=== PATIENT | male | born 1950 | race Caucasian/White ===

== ENCOUNTER 2016-09-08 12:23 | Emergency (ER) | payer BC ==
[2016-09-08] MEDS ORDERED: NS 0.9% 1000 ML* 3,000 ML IV ONE (12:54)
[2016-09-08] MEDS ORDERED: Metoclopramide IV* 5 MG/ML 2 ML VIAL IV ONE (12:54)
[2016-09-08] MEDS ORDERED: HYDROmorphone INJ* 2 MG/ML CARPUJECT SYRINGE IV ONE (12:54)
[2016-09-08] MEDS ORDERED: LORazepam INJ* 2 MG/ML 1 ML VIAL IV PUSH ONE (12:56)
[2016-09-08] MEDS ORDERED: HYDROmorphone INJ* 2 MG/ML CARPUJECT SYRINGE IV SLOW PU ONE (12:57)
[2016-09-08 13:28] LABS: Hematocrit 48 % (42-52); Hemoglobin 15.9 g/dl (14.0-18.0); Mean Corpuscular HGB Conc 33 g/dl (31-36); Mean Corpuscular Hemoglobin 31 pg (27-31); Mean Corpuscular Volume 95 fL (80-94); Mean Platelet Volume 10 um3 (7.4-10.4); Red Blood Count 5.07 10^6/ul (4.0-5.4); Red Cell Distribution Width 14 % (10.5-15); White Blood Count 10.3 10^3/ul (3.5-10.8)
[2016-09-08 13:45] LABS: Albumin 4.6 g/dL (3.2-5.2); BUN/Creatinine Ratio 26.2 (8-20); C Reactive Protein 2.17 mg/L (< 5.00); Calcium 10.4 mg/dL (8.6-10.3); EGFR African American 65.1 (>60); EGFR Non-African American 50.6 (>60); Globulin 3.5 g/dL (2-4); Magnesium 2.4 mg/dL (1.9-2.7); Total Bilirubin 0.8 mg/dL (0.2-1.0); Total Protein 8.1 g/dL (6.4-8.9)
[2016-09-08 14:05] LABS: Potassium 4.4 mmol/L (3.5-5.0)
--- NOTE | 2016-09-08 14:37 | ED ---
Robbie Wood Adam, scribed for Vini Frazier MD on 09/08/16 at 1319 . Abdominal Pain/Male - HPI Summary HPI Summary: Patient is a 65 y/o male who presents to [facility] with abdominal pain that set on suddenly 6 days ago. He describes the pain as constant, but alleviated with Dilaudid (4mg) with Lorazepam and with meditation tape. Pt has been experiencing these episodes since [address] Loomis (GI) suspects Cyclical Vomiting Syndrome. He states the pain begins suddenly with no trigger and describes it as a knot in his abd that pulses up and down. His is concerned about dehydration and states he has not retained food since 6 days ago. His blood pressure has been fluctuating. He reports it was 94/44 earlier today and is 176/79 currently. He confirms dry heaves and chills, but denies migraines. He has not had any surgeries on his stomach and has NKDA. He does have HTN. - History of Current Complaint Chief Complaint: EDAbdPain Stated Complaint: ABD PAIN Time Seen by Provider: 09/08/16 12:39 Hx Obtained From: Patient, Family/Ticket Puller - Onset/Duration: Sudden Onset, Lasting Days, Still Present Timing: Constant, Lasting Days Severity Initially: Moderate Severity Currently: Moderate Pain Intensity: 10 Pain Scale Used: 0-10 Numeric Aggravating Factor(s): Nothing Alleviating Factor(s): Medications - Dilaudid (4mg) with Lorazepam., Other: - Meditation tape. Associated Signs And Symptoms: Positive: Other - Dry heaves and chills. - Allergies/Home Medications Allergies/Adverse Reactions: Allergies Allergy/AdvReac Type Severity Reaction Status Date / Time No Known Allergies Allergy Verified 09/08/16 12:37 PMH/Surg Hx/FS Hx/Imm Hx Endocrine/Hematology History: Denies: Hx Diabetes, Hx Thyroid Disease Cardiovascular History: Reports: Hx Hypertension - on medication Respiratory History: Reports: Hx Seasonal Allergies Denies: Hx Asthma, Hx Chronic Obstructive Pulmonary Disease (COPD) GI History: Reports: Hx Gastroesophageal Reflux Disease, Hx Ulcer - gerd History: Denies: Hx Dialysis, Hx Renal Disease Musculoskeletal History: Reports: Hx Back Problems - right leg Sensory History: Reports: Hx Contacts or Glasses Opthamlomology History: Reports: Hx Contacts or Glasses Neurological History: Reports: Other Neuro Impairments/Disorders - PAIN CLINIC PATIENT - Surgical History Surgery Procedure, Year, and Place: achilles tendon - Immunization History Date of Tetanus Vaccine: Up to date Date of Influenza Vaccine: Fall 2011 Infectious Disease History: No Infectious Disease History: Denies: Hx Clostridium Difficile, Hx Hepatitis, Hx Human Immunodeficiency Virus (HIV), Hx of Known/Suspected MRSA, Hx Shingles, Hx Tuberculosis, Hx Known/ Suspected VRE, Hx Known/Suspected VRSA, History Other Infectious Disease, Traveled Outside the [place] in Last 30 Days - Family History Known Family History: Positive: Hypertension, Other - Mother had lung CA. Father had a CVA. Family History: Both parents. - Social History Occupation: Employed Full-time Lives: With Family - . Alcohol Use: Daily Alcohol Amount: cocktail nightly Substance Use Type: Reports: None Hx Tobacco Use: Yes Smoking Status (MU): Former Smoker Type: Cigars Review of Systems Positive: Chills Positive: Abdominal Pain, Other - Dry heaves. All Other Systems Reviewed And Are Negative: Yes Physical Exam - Summary Physical Exam Summary: The patient is well-nourished and in mild to moderate distress. The skin is warm and skin color reflects adequate perfusion. HEENT: The head is normocephalic and atraumatic. The pupils are equal and reactive. The conjunctivae are clear and without drainage. Nares are patent and without drainage. Mouth reveals dry mucous membranes. The external ears are intact. The ear canals are patent and without drainage. The tympanic membranes are intact. Neck is supple with full range of motion and non-tender. There are no carotid bruits. There is no neck vein distension. Respiratory: Chest is non-tender. Lungs are clear to auscultation and breath sounds are symmetrical and equal. Cardiovascular: Heart is regular rate and rhythm. There is no murmur or rub auscultated. There is no peripheral edema and pulses are symmetrical and equal. Cyanosis in nail beds. Abdomen: The abdomen is soft and non-tender. Hyperactive bowel sounds. Musculoskeletal: There is no back pain noted. Extremities are non-tender with full range of motion. Capillary refill in 3 seconds. There is no peripheral edema or calf tenderness elicited. Neurological: Patient is alert and oriented to person, place and time. Psychiatric: The patient has an appropriate affect and does not exhibit any anxiety or depression. Triage Information Reviewed: Yes Vital Signs On Initial Exam: Initial Vitals Temp Pulse Resp BP Pulse Ox 97.9 F 81 14 207/106 100 09/08/16 12:25 09/08/16 12:25 09/08/16 12:25 09/08/16 12:25 09/08/16 12:25 Vital Signs Reviewed: Yes Diagnostics - Vital Signs Vital Signs Temp Pulse Resp BP Pulse Ox 09/08/16 12:25 97.9 F 81 14 207/106 100 - Laboratory Lab Results: Lab Results 09/08/16 09/08/16 09/08/16 Range/Units 13:10 13:10 13:10 WBC 10.3 (3.5-10.8) 10^3/ul RBC 5.07 (4.0-5.4) 10^6/ul Hgb 15.9 (14.0-18.0) g/dl Hct 48 (42-52) % MCV 95 H (80-94) fL MCH 31 (27-31) pg MCHC 33 (31-36) g/dl RDW 14 (10.5-15) % Plt Count 191 (150-450) 10^3/ul MPV 10 (7.4-10.4) um3 Neut % (Auto) 72.2 (38-83) % Lymph % (Auto) 13.3 L (25-47) % [place] % (Auto) 13.6 H (1-9) % Eos % (Auto) 0.2 (0-6) % Baso % (Auto) 0.7 (0-2) % Absolute Neuts (auto) 7.4 (1.5-7.7) 10^3/ul Absolute Lymphs (auto) 1.4 (1.0-4.8) 10^3/ul Absolute Monos (auto) 1.4 H (0-0.8) 10^3/ul Absolute Eos (auto) 0 (0-0.6) 10^3/ul Absolute Basos (auto) 0.1 (0-0.2) 10^3/ul Absolute Nucleated RBC 0.01 10^3/ul Nucleated RBC % 0.1 Sodium 133 (133-145) mmol/L Potassium 4.4 (3.5-5.0) mmol/L Chloride 101 (101-111) mmol/L Carbon Dioxide 22 (22-32) mmol/L Anion Gap 10 (2-11) mmol/L BUN 37 H (6-24) mg/dL Creatinine 1.41 H (0.67-1.17) mg/dL Est GFR ( Amer) 65.1 (>60) Est GFR (Non-Af Amer) 50.6 (>60) BUN/Creatinine Ratio 26.2 H (8-20) Glucose 143 H (70-100) mg/dL Lactic Acid 2.1 H* (0.5-2.0) mmol/L Calcium 10.4 H (8.6-10.3) mg/dL Magnesium 2.4 (1.9-2.7) mg/dL Total Bilirubin 0.80 (0.2-1.0) mg/dL AST 35 (13-39) U/L ALT 51 (7-52) U/L Alkaline Phosphatase 58 (34-104) U/L C-Reactive Protein 2.17 (< 5.00) mg/L Total Protein 8.1 (6.4-8.9) g/dL Albumin 4.6 (3.2-5.2) g/dL Globulin 3.5 (2-4) g/dL Albumin/Globulin Ratio 1.3 (1-3) Amylase 22 L (29-103) U/L Lipase 12 (11.0-82.0) U/L Result Diagrams: 09/08/16 13:10 09/08/16 13:10 Lab Statement: Any lab studies that have been ordered have been reviewed, and results considered in the medical decision making process. - Additional Comments Diagnostic Additional Comments: Lactic Acid 2.1 Re-Evaluation - Re-Evaluation First Eval Re-Evaluation Time: 13:40 - Pt is smilling and feeling better. Change: Improved Second Eval Re-Evaluation Time: 14:29 - Pt is doing well. He is on his third liter of fluids. He will be discharged when that is complete. Abdominal Pain Fem Course/Dx - Diagnoses Differential Diagnosis/HQI/PQRI: Bowel Obstruction, Pancreatitis, Peptic Ulcer Disease, Other - cyclic vomiting, dehydration, renal insufficiency Provider Diagnoses: Cyclical vomiting, Dehydration Discharge - Discharge Plan Condition: Stable Disposition: HOME Prescriptions: LORazepam TAB(*) [Ativan TAB(*)] 1 mg PO TID PRN #20 tab MDD 3 PRN Reason: Anxiety - Severe Metoclopramide TAB* [Reglan TAB*] 5 mg PO QID ACHS #120 tab Patient Education Materials: Acute Nausea and Vomiting (ED), Dehydration (ED) Referrals: Jessica Valenzuela MD [Primary Care Provider] - Additional Instructions: Follow up with Dr. Valenzuela. The documentation as recorded by the Robbie woodard Adam accurately reflects the service I personally performed and the decisions made by me, Vini Frazier MD.
[2016-09-08 16:15] VITALS: BP 158/96
== END 2016-09-08 16:16 | disposition home or self-care (01) ==
LOC: ED 12:23
DX: E86.0 Dehydration (principal); G43.A0 Cyclical vomiting, in migraine, not intractable; I10 Essential (primary) hypertension; K21.9 Gastro-esophageal reflux disease without esophagitis; Z87.891 Personal history of nicotine dependence
CPT/HCPCS: 36415; 80053; 82150; 83605; 83690; 83735; 85025; 86140; 96360; 96374; 96375; 99283; J1170; J2060; J2765

== ENCOUNTER 2017-01-05 17:25 | Observation (INO) | payer MEDICARE, BC ==
[2017-01-05] MEDS ORDERED: HYDROmorphone* 1 MG/ML 1 ML SYR IV ONE ×2 (17:39→19:48)
[2017-01-05] MEDS ORDERED: LORazepam INJ* 2 MG/ML 1 ML VIAL IV PUSH ONE (17:39)
[2017-01-05] MEDS: NS 0.9% 1000 ML* 2,000 ML IV ONE ×2 (18:39→18:40)
[2017-01-05 18:49] LABS: Hematocrit 47 % (42-52); Hemoglobin 15.4 g/dl (14.0-18.0); Mean Corpuscular HGB Conc 33 g/dl (31-36); Mean Corpuscular Hemoglobin 31 pg (27-31); Mean Corpuscular Volume 93 fL (80-94); Mean Platelet Volume 10 um3 (7.4-10.4); Red Blood Count 4.98 10^6/ul (4.0-5.4); Red Cell Distribution Width 13 % (10.5-15); White Blood Count 9.6 10^3/ul (3.5-10.8)
[2017-01-05 19:06] LABS: Albumin 4.7 g/dL (3.2-5.2); BUN/Creatinine Ratio 23.7 (8-20); C Reactive Protein 4.13 mg/L (< 5.00); Calcium 10.6 mg/dL (8.6-10.3); EGFR African American 52.6 (>60); EGFR Non-African American 40.9 (>60); Globulin 3.2 g/dL (2-4); Potassium 3.4 mmol/L (3.5-5.0); Total Bilirubin 0.7 mg/dL (0.2-1.0); Total Protein 7.9 g/dL (6.4-8.9)
[2017-01-05] MEDS ORDERED: NS 0.9% 1000 ML* 1,000 ML IV ONE (19:47)
[2017-01-05 20:29] LABS: Urine Bacteria 1+ (Absent); Urine Bilirubin Negative (Negative); Urine Glucose Negative (Negative); Urine Nitrite Negative (Negative)
--- NOTE | 2017-01-05 20:41 | ED ---
Joshua Wood Alok, scribed for uDlce Duron MD on 01/05/17 at 1820 . Abdominal Pain/Male - HPI Summary HPI Summary: 66M presents to the ED with chronic vomiting and abd pain since 1500 today. Pt also notes lightheadedness and dizziness since 1700. Pt states that for the past 10 days he has been vomiting on and off every few days accompanied by abd pain described as "thumping". His nausea has been managed by Dilaudid PO and usually improves with sleep. 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 Pt has not eaten solid food for the whole week. Pt has had chronic vomiting since 2002 initially with about 3 episodes per year. His vomiting was controlled with Nortriptyline for years until returning May 2016, Sep 2016, and the episode happening currently. Pt has had water and ensure today. PMHx includes HTN. - History of Current Complaint Chief Complaint: EDAbdPain Stated Complaint: NAUSEA, LIGHT HEAD Time Seen by Provider: 01/05/17 17:37 Hx Obtained From: Patient, Family/Oven Dauber Onset/Duration: Lasting Days, Still Present Timing: Intermittent, Lasting Days Severity Initially: Moderate Severity Currently: Moderate Pain Intensity: 8 Pain Scale Used: 0-10 Numeric Location: Diffuse Radiates: No Character: Other: - "thumping" Aggravating Factor(s): Food Alleviating Factor(s): Medications - dilaudid, Other: - Sleep Associated Signs And Symptoms: Positive: Dizzy, Decreased Appetite, Nausea, Vomiting. Negative: Fever - Allergies/Home Medications Allergies/Adverse Reactions: Allergies Allergy/AdvReac Type Severity Reaction Status Date / Time No Known Allergies Allergy Verified 09/08/16 12:37 Home Medications: Home Medications Ezetimibe TAB* [Zetia TAB*] 10 mg PO DAILY 01/05/17 [History Confirmed 01/05/17] Fluconazole [Fluconazole 200 mg tab] 200 mg PO WEEKLY 01/05/17 [History Confirmed 01/05/17] Meloxicam(NF) [Mobic(NF)] 15 mg PO DAILY 01/05/17 [History Confirmed 01/05/17] Triamcinolone 0.1% CREAM (NF) [Kenalog 0.1% Cream (NF)] 1 applic TOPICAL DAILY PRN 01/05/17 [History Confirmed 01/05/17] PMH/Surg Hx/FS Hx/Imm Hx Endocrine/Hematology History: Denies: Hx Diabetes, Hx Thyroid Disease Cardiovascular History: Reports: Hx Hypertension - on medication Denies: Hx Pacemaker/ICD Respiratory History: Reports: Hx Seasonal Allergies Denies: Hx Asthma, Hx Chronic Obstructive Pulmonary Disease (COPD) GI History: Reports: Hx Gastroesophageal Reflux Disease, Hx Ulcer - gerd History: Denies: Hx Dialysis, Hx Renal Disease Musculoskeletal History: Reports: Hx Back Problems - right leg Sensory History: Reports: Hx Contacts or Glasses Denies: Hx Hearing Aid Opthamlomology History: Reports: Hx Contacts or Glasses Neurological History: Reports: Other Neuro Impairments/Disorders - PAIN CLINIC PATIENT Psychiatric History: Denies: Hx Panic Disorder - Surgical History Surgery Procedure, Year, and Place: Lt - achilles tendon - Immunization History Date of Tetanus Vaccine: Up to date Date of Influenza Vaccine: Fall 2011 Infectious Disease History: No Infectious Disease History: Denies: Hx Clostridium Difficile, Hx Hepatitis, Hx Human Immunodeficiency Virus (HIV), Hx of Known/Suspected MRSA, Hx Shingles, Hx Tuberculosis, Hx Known/ Suspected VRE, Hx Known/Suspected VRSA, History Other Infectious Disease, Traveled Outside the [place] in Last 30 Days - Family History Known Family History: Positive: Hypertension, Other - Mother had lung CA. Father had a CVA. Family History: Both parents. - Social History Occupation: Retired Lives: With Family Alcohol Use: Daily Alcohol Amount: cocktail nightly Substance Use Type: Reports: None Hx Tobacco Use: Yes Smoking Status (MU): Former Smoker Type: Cigars Review of Systems Negative: Fever Positive: Abdominal Pain, Vomiting, Nausea Neurological: Other - Dizziness, Lightheadedness All Other Systems Reviewed And Are Negative: Yes Physical Exam Triage Information Reviewed: Yes Vital Signs On Initial Exam: Initial Vitals Temp Pulse Resp BP Pulse Ox 96.4 F 75 20 180/96 98 01/05/17 17:26 01/05/17 17:26 01/05/17 17:26 01/05/17 17:26 01/05/17 17:26 Vital Signs Reviewed: Yes Appearance: Positive: Well-Appearing, Pain Distress Skin: Positive: Warm, Skin Color Reflects Adequate Perfusion, Dry Eyes: Positive: EOMI, FLO ENT: Positive: Pharynx normal, TMs normal Neck: Positive: Supple, Nontender Respiratory/Lung Sounds: Positive: Clear to Auscultation, Breath Sounds Present. Negative: Rales, Rhonchi, Wheezes Cardiovascular: Positive: RRR, Other - No gallop. Negative: Murmur, Rub Abdomen Description: Positive: Nontender, Soft, Other: - No rebound. Negative: Distended, Guarding Bowel Sounds: Positive: Present Musculoskeletal: Positive: Strength/ROM Intact. Negative: Edema Left, Edema Right Neurological: Positive: Sensory/Motor Intact, Alert, Oriented to Person Place, Time, CN Intact II-III Psychiatric: Positive: Affect/Mood Appropriate Diagnostics - Vital Signs Vital Signs Temp Pulse Resp BP Pulse Ox 01/05/17 17:29 96.4 F 90 20 180/96 100 01/05/17 17:26 96.4 F 75 20 180/96 98 - Laboratory Lab Results: Lab Results 01/05/17 01/05/17 01/05/17 Range/Units 18:40 18:40 18:40 WBC 9.6 (3.5-10.8) 10^3/ul RBC 4.98 (4.0-5.4) 10^6/ul Hgb 15.4 (14.0-18.0) g/dl Hct 47 (42-52) % MCV 93 (80-94) fL MCH 31 (27-31) pg MCHC 33 (31-36) g/dl RDW 13 (10.5-15) % Plt Count 159 (150-450) 10^3/ul MPV 10 (7.4-10.4) um3 Neut % (Auto) 77.1 (38-83) % Lymph % (Auto) 12.8 L (25-47) % [place] % (Auto) 8.9 (1-9) % Eos % (Auto) 0.5 (0-6) % Baso % (Auto) 0.7 (0-2) % Absolute Neuts (auto) 7.4 (1.5-7.7) 10^3/ul Absolute Lymphs (auto) 1.2 (1.0-4.8) 10^3/ul Absolute Monos (auto) 0.9 H (0-0.8) 10^3/ul Absolute Eos (auto) 0 (0-0.6) 10^3/ul Absolute Basos (auto) 0.1 (0-0.2) 10^3/ul Absolute Nucleated RBC 0 10^3/ul Nucleated RBC % 0.1 Sodium 133 (133-145) mmol/L Potassium 3.4 L (3.5-5.0) mmol/L Chloride 100 L (101-111) mmol/L Carbon Dioxide 17 L (22-32) mmol/L Anion Gap 16 H (2-11) mmol/L BUN 40 H (6-24) mg/dL Creatinine 1.69 H (0.67-1.17) mg/dL Est GFR ( Amer) 52.6 (>60) Est GFR (Non-Af Amer) 40.9 (>60) BUN/Creatinine Ratio 23.7 H (8-20) Glucose 114 H (70-100) mg/dL Lactic Acid 2.3 H* (0.5-2.0) mmol/L Calcium 10.6 H (8.6-10.3) mg/dL Total Bilirubin 0.70 (0.2-1.0) mg/dL AST 40 H (13-39) U/L ALT 43 (7-52) U/L Alkaline Phosphatase 60 (34-104) U/L C-Reactive Protein 4.13 (< 5.00) mg/L Total Protein 7.9 (6.4-8.9) g/dL Albumin 4.7 (3.2-5.2) g/dL Globulin 3.2 (2-4) g/dL Albumin/Globulin Ratio 1.5 (1-3) Lipase 18 (11.0-82.0) U/L Urine Color Urine Appearance Urine pH (5-9) Ur Specific [place] (1.010-1.030) Urine Protein (Negative) Urine Ketones (Negative) Urine Blood (Negative) Urine Nitrate (Negative) Urine Bilirubin (Negative) Urine Urobilinogen (Negative) Ur Leukocyte Esterase (Negative) Urine WBC (Auto) (Absent) Urine RBC (Auto) (Absent) Ur Squamous Epith Cells (Absent) Urine Bacteria (Absent) Hyaline Casts (Absent) Urine Glucose (Negative) 01/05/17 Range/Units 20:08 WBC (3.5-10.8) 10^3/ul RBC (4.0-5.4) 10^6/ul Hgb (14.0-18.0) g/dl Hct (42-52) % MCV (80-94) fL MCH (27-31) pg MCHC (31-36) g/dl RDW (10.5-15) % Plt Count (150-450) 10^3/ul MPV (7.4-10.4) um3 Neut % (Auto) (38-83) % Lymph % (Auto) (25-47) % [place] % (Auto) (1-9) % Eos % (Auto) (0-6) % Baso % (Auto) (0-2) % Absolute Neuts (auto) (1.5-7.7) 10^3/ul Absolute Lymphs (auto) (1.0-4.8) 10^3/ul Absolute Monos (auto) (0-0.8) 10^3/ul Absolute Eos (auto) (0-0.6) 10^3/ul Absolute Basos (auto) (0-0.2) 10^3/ul Absolute Nucleated RBC 10^3/ul Nucleated RBC % Sodium (133-145) mmol/L Potassium (3.5-5.0) mmol/L Chloride (101-111) mmol/L Carbon Dioxide (22-32) mmol/L Anion Gap (2-11) mmol/L BUN (6-24) mg/dL Creatinine (0.67-1.17) mg/dL Est GFR ( Amer) (>60) Est GFR (Non-Af Amer) (>60) BUN/Creatinine Ratio (8-20) Glucose (70-100) mg/dL Lactic Acid (0.5-2.0) mmol/L Calcium (8.6-10.3) mg/dL Total Bilirubin (0.2-1.0) mg/dL AST (13-39) U/L ALT (7-52) U/L Alkaline Phosphatase (34-104) U/L C-Reactive Protein (< 5.00) mg/L Total Protein (6.4-8.9) g/dL Albumin (3.2-5.2) g/dL Globulin (2-4) g/dL Albumin/Globulin Ratio (1-3) Lipase (11.0-82.0) U/L Urine Color Yellow Urine Appearance Cloudy Urine pH 5.0 (5-9) Ur Specific [place] 1.015 (1.010-1.030) Urine Protein 1+(30 mg/dl) H (Negative) Urine Ketones 1+ H (Negative) Urine Blood Negative (Negative) Urine Nitrate Negative (Negative) Urine Bilirubin Negative (Negative) Urine Urobilinogen Negative (Negative) Ur Leukocyte Esterase Negative (Negative) Urine WBC (Auto) Trace(0-5/hpf) (Absent) Urine RBC (Auto) 1+(3-5/hpf) H (Absent) Ur Squamous Epith Cells Present H (Absent) Urine Bacteria 1+ H (Absent) Hyaline Casts Present H (Absent) Urine Glucose Negative (Negative) Result Diagrams: 01/05/17 18:40 01/05/17 18:40 Lab Statement: Any lab studies that have been ordered have been reviewed, and results considered in the medical decision making process. - EKG 1954 Cardiac Rate: NL EKG Rhythm: Sinus Rhythm - 87 bpm EKG Interpretation: Poor R-wave progression Abdominal Pain Fem Course/Dx - Course Course Of Treatment: 66 yo male with cyclic vomiting syndrome having severe nausea and retching for a week intermittently but not keeping anything down. Electrolytes off will admit, case discussed with Dr. Orta - Diagnoses Provider Diagnoses: Cyclical vomiting - Provider Notifications Discussed Care Of Patient With: Jonathan Orta - Will admit pt Time Discussed With Above Provider: 19:49 Discharge - Discharge Plan Condition: Stable Disposition: ADMITTED TO [facility] Referrals: Jessica Valenzuela MD [Primary Care Provider] - The documentation as recorded by the Joshua woodard Alok accurately reflects the service I personally performed and the decisions made by me, Dulce Duron MD.
[2017-01-06] MEDS ORDERED: Morphine INJ* 4 MG/ML 1 ML SYRINGE IV PRN (00:30)
[2017-01-06] MEDS ORDERED: Ondansetron INJ* 2 MG/ML VIAL IV PRN (00:30)
[2017-01-06] MEDS: NS 0.9% 1000 ML* 1,000 ML IV SCH ×2 (00:41→10:38)
[2017-01-06 11:38] LABS: Albumin 3.6 g/dL (3.2-5.2); BUN/Creatinine Ratio 22.4 (8-20); EGFR African American 89.2 (>60); EGFR Non-African American 69.4 (>60); Globulin 2.6 g/dL (2-4); Potassium 3.6 mmol/L (3.5-5.0); Total Bilirubin 0.6 mg/dL (0.2-1.0); Total Protein 6.2 g/dL (6.4-8.9)
[2017-01-06 15:50] VITALS: BP 146/91
--- NOTE | 2017-01-07 07:01 | DS ---
DISCHARGE SUMMARY: DATE OF ADMISSION: 01/05/17 DATE OF DISCHARGE: 01/06/17 PRIMARY CARE PHYSICIAN: Dr. Jessica Valenzuela. DISCHARGE DIAGNOSES: 1. Acute renal failure and hypokalemia due to dehydration that resolved. 2. History of cyclical vomiting syndrome. SECONDARY DIAGNOSES: 1. History of gastroesophageal reflux disease. 2. History of Bowman's esophagus. 3. Hypertension. 4. Dyslipidemia. MEDICATIONS AT DISCHARGE: Include: 1. Atenolol 50 mg daily. 2. Vitamin B12 1000 mcg daily. 3. Zetia 10 mg daily. 4. Fluconazole 200 mg weekly. 5. Losartan 50 mg daily. 6. Meloxicam 15 mg daily. 7. Pamelor (nortriptyline) 75 mg at bedtime. 8. Prilosec 20 mg daily. 9. Zofran 4 mg every 6 hours p.r.n. 10. Zocor 30 mg daily. 11. Amlodipine 5 mg daily. LABORATORY DATA AND STUDIES PERFORMED DURING THE HOSPITAL STAY: On 01/06/17, sodium of 135, potassium 3.6, chloride 109, carbon dioxide 20, BUN 24, creatinine 1.07. White blood cell count of 9.6, hemoglobin of 15.4, hematocrit of 47, platelets of 159. HOSPITALIZATION COURSE: Mr. Klein is a 66-year-old male with history of cyclical vomiting syndrome, who came into the hospital with complaints of nausea and vomiting off and on for the past 10 days. The patient was noted to be in acute renal failure with marked hypokalemia. That resolved after initial rehydration in the hospital. After 24 hours of hospital stay, the patient was tolerating soft diet without any problems. His abdominal pain that was present on admission resolved. He had no more nausea. He is going to be discharged home with recommendation to follow up with Dr. Jessica Valenzuela in approximately 4 to 7 days. PHYSICAL EXAMINATION: At the time of discharge, blood pressure 146/91, heart rate of 81 and regular, respiratory rate 16, oxygen saturation 98% on room air, temperature 98.1. General: The patient is a pleasant 66-year-old male who is in no acute distress. Alert, awake, and oriented x3. HEENT: Head atraumatic, normocephalic. Eyes: Pupils equal, reactive to light and accommodation. Oropharynx clear. Mucosa moist. Neck: Supple. No JVD. No bruits bilaterally. Cardiovascular: Regular rate and rhythm. No murmur. Respiratory : Clear to auscultation bilaterally. Abdomen: Soft, mildly tender in the epigastrium, no rebound and no guarding. Bowel sounds present in all 4 quadrants. Extremities: There is no edema. Pulses +2 bilaterally. There is no clubbing or cyanosis. Neuro Evaluation: Speech clear. Cranial nerves II through XII grossly intact. Motor strength is 5/5 bilaterally. Please note that this is a short summary of the patient's hospital stay. Please refer to further medical records for details. CC: Dr. Valenzuela* [id number]/CPS #: [id number] MTDD
== END 2017-01-06 17:10 | disposition home or self-care (01) ==
LOC: ED 17:25 → MED 19:49
PROVIDERS: ADMIT Internal Medicine; ATTEND Internal Medicine
DX: N17.9 Acute kidney failure, unspecified (principal); E87.6 Hypokalemia; E86.0 Dehydration; G43.A0 Cyclical vomiting, in migraine, not intractable; K21.9 Gastro-esophageal reflux disease without esophagitis; K22.70 Barrett's esophagus without dysplasia; E78.5 Hyperlipidemia, unspecified; Z79.899 Other long term (current) drug therapy; Z87.891 Personal history of nicotine dependence; R94.31 Abnormal electrocardiogram [ECG] [EKG]
CPT/HCPCS: 36415; 80053; 81003; 81015; 83605; 83690; 85025; 86140; 87086; 93005; 96361; 96374; 96375; 96376; 99284; G0378; J1170; J2060; J2270

== ENCOUNTER 2017-05-03 12:23 | Emergency (ER) | payer MEDICARE, OTHER ==
[2017-05-03 14:45] VITALS: BP 172/100
[2017-05-03 15:02] LABS: Hematocrit 44 % (42-52); Hemoglobin 14.8 g/dl (14.0-18.0); Mean Corpuscular HGB Conc 34 g/dl (31-36); Mean Corpuscular Hemoglobin 33 pg (27-31); Mean Corpuscular Volume 96 fL (80-94); Mean Platelet Volume 9 um3 (7.4-10.4); Red Blood Count 4.55 10^6/ul (4.0-5.4); Red Cell Distribution Width 14 % (10.5-15); White Blood Count 7.8 10^3/ul (3.5-10.8)
[2017-05-03 15:19] LABS: Albumin 4.7 g/dL (3.2-5.2); BUN/Creatinine Ratio 17.5 (8-20); C Reactive Protein 8.28 mg/L (< 5.00); Calcium 9.6 mg/dL (8.6-10.3); EGFR African American 99.9 (>60); EGFR Non-African American 77.7 (>60); Globulin 3.2 g/dL (2-4); Total Bilirubin 0.7 mg/dL (0.2-1.0); Total Protein 7.9 g/dL (6.4-8.9)
[2017-05-03 15:41] LABS: Potassium 3.9 mmol/L (3.5-5.0)
== END 2017-05-03 15:48 | disposition left against medical advice (07) ==
LOC: ED 12:23
DX: R10.9 Unspecified abdominal pain (principal); Z53.21 Procedure and treatment not carried out due to patient leaving prior to being seen by health care provider
CPT/HCPCS: 36415; 80053; 83690; 85025; 86140; 99281

== ENCOUNTER 2017-06-19 07:14 | Emergency (ER) | payer MEDICARE, OTHER ==
[2017-06-19 07:31] VITALS: BP 127/86
--- NOTE | 2017-06-19 08:02 | UC ---
Respiratory Complaint HPI - HPI Summary HPI Summary: 66 yo gentleman c/o progressive cough x several days, progressively worse. Last night coughed a lot . + phlegm. Color unk. No sob except with cough. No cp. No recent n/v. No rash reported. no hemoptysis reported. - History of Current Complaint Chief Complaint: UCGeneralIllness Stated Complaint: URI Time Seen by Provider: 06/19/17 07:20 Hx Obtained From: Patient - Allergies/Home Medications Allergies/Adverse Reactions: Allergies Allergy/AdvReac Type Severity Reaction Status Date / Time No Known Allergies Allergy Verified 06/19/17 07:21 PMH/Surg Hx/FS Hx/Imm Hx Previously Healthy: Yes - hx cyclic vomiting syndrome - Surgical History Surgical History: Yes Surgery Procedure, Year, and Place: Lt - achilles tendon - Family History Known Family History: Positive: Hypertension, Other - Mother had lung CA. Father had a CVA. Family History: Both parents. - Social History Alcohol Use: Occasionally Alcohol Amount: cocktail nightly Substance Use Type: None Smoking Status (MU): Former Smoker Type: Cigars When Did the Patient Quit Smoking/Using Tobacco: 1 yr ago - Immunization History Most Recent Influenza Vaccination: patient does not remember Most Recent Tetanus Shot: patient cant remeber Review of Systems Constitutional: Negative, Fatigue Skin: Negative Eyes: Negative ENT: Sinus Congestion Respiratory: Cough Cardiovascular: Negative Gastrointestinal: Negative Genitourinary: Negative Motor: Negative Neurovascular: Negative Musculoskeletal: Negative Neurological: Negative Psychological: Negative Is Patient Immunocompromised?: No All Other Systems Reviewed And Are Negative: Yes Physical Exam Triage Information Reviewed: Yes Appearance: Well-Nourished Vital Signs: Initial Vital Signs Temp 98.1 F 06/19/17 07:24 Pulse 72 06/19/17 07:24 Resp 20 06/19/17 07:24 BP 127/86 06/19/17 07:24 Pulse Ox 98 06/19/17 07:24 Vital Signs Reviewed: Yes Eye Exam: Normal ENT: Positive: Pharynx normal, TM dull Neck exam: Normal Respiratory: Positive: Chest non-tender, No respiratory distress, No accessory muscle use, Wheezing - scattered bibas exp wheeze Cardiovascular Exam: Normal Cardiovascular: Positive: RRR, Pulses Normal Abdominal Exam: Normal Abdomen Description: Positive: Nontender Musculoskeletal Exam: Normal - gait steady Neurological Exam: Normal - nonfocal Psychological Exam: Normal - conversing easily and appropriately Skin Exam: Normal - no visible or reported rash UC Diagnostic Evaluation - Laboratory O2 Sat by Pulse Oximetry: 98 Respiratory Course/Dx - Course Course Of Treatment: D/w pt coa / tx plan. Has used inhalers in the past, it's been a long time. F/u Dr. Valenzuela next week as scheduled. - Differential Dx/Diagnosis Provider Diagnoses: acute bronchitis. wheezing Discharge - Discharge Plan Condition: Stable Disposition: HOME Prescriptions: Albuterol HFA INHALER* [Ventolin HFA Inhaler*] 1 - 2 puff INH Q4H PRN #1 mdi PRN Reason: Wheezing DOXYcycline CAP(*) [DOXYcycline 100MG CAP(*)] 100 mg PO BID #20 cap Patient Education Materials: Acute Bronchitis (ED), Wheezing (ED) Referrals: Jessica Valenzuela MD [Primary Care Provider] - Additional Instructions: Follow up Dr. Valenzuela next week as scheduled. Seek medical attention for worse or new problems in the meantime.
== END 2017-06-19 08:15 | disposition home or self-care (01) ==
LOC: UCEAST 07:14
DX: J20.9 Acute bronchitis, unspecified (principal); R06.2 Wheezing; Z87.891 Personal history of nicotine dependence
CPT/HCPCS: 99212; G0463

== ENCOUNTER 2017-12-08 12:26 | Emergency (ER) | payer MEDICARE, OTHER ==
[2017-12-08] MEDS ORDERED: LORazepam TAB(*) 1 MG PO ONE (13:27)
[2017-12-08] MEDS ORDERED: NS 0.9% 1000 ML* 1,000 ML IV ONE (13:32)
[2017-12-08] MEDS ORDERED: Metoclopramide IV* 5 MG/ML 2 ML VIAL IV ONE (13:32)
[2017-12-08] MEDS ORDERED: HYDROmorphone INJ* 1 MG/ML CARPUJECT SYRINGE IV ONE (13:32)
[2017-12-08 13:35] LABS: INR 0.9 (0.77-1.02)
[2017-12-08] MEDS ORDERED: HYDROmorphone INJ* 2 MG/ML CARPUJECT SYRINGE ONE (13:39)
[2017-12-08 13:41] LABS: ABS Basophils 0.1 10^3/ul (0-0.2); ABS Eosinophils 0.1 10^3/ul (0-0.6); ABS Lymphocytes 1.5 10^3/ul (1.0-4.8); ABS Monocytes 1.2 10^3/ul (0-0.8); ABS Neutrophils 6.6 10^3/ul (1.5-7.7); ABS Nucleated RBC 0 10^3/ul; Eosinophil % 0.6 % (0-6); Hematocrit 48 % (42-52); Hemoglobin 16.1 g/dl (14.0-18.0); Lymphocyte % 15.4 % (25-47); Mean Corpuscular HGB Conc 34 g/dl (31-36); Mean Corpuscular Hemoglobin 32 pg (27-31); Mean Corpuscular Volume 95 fL (80-94); Nucleated Red Blood Cells % 0; Platelet Count 205 10^3/ul (150-450); Red Blood Count 5.01 10^6/ul (4.0-5.4); Red Cell Distribution Width 13 % (10.5-15); White Blood Count 9.4 10^3/ul (3.5-10.8)
[2017-12-08 16:44] VITALS: BP 99/64
--- NOTE | 2017-12-08 16:52 | ED ---
Vidal Wood Elizabeth, scribed for Kolby Rueda MD on 12/08/17 at 1343 . Abdominal Pain/Male - HPI Summary HPI Summary: This patient is a 67 year old M presenting to [facility] with a chief complaint of abd pain since 10 days ago. The patient rates the pain 8/10 in severity. Symptoms aggravated by food. Symptoms alleviated by nothing. Patient reports nausea, intermittent vomiting, constipation, and loss of appetite. Patients family notes that patient was previously diagnosed with cyclical vomiting syndrome with similar symptoms. 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 Onset/Duration: Lasting Days Timing: Intermittent Severity Currently: Moderate Pain Intensity: 8 Pain Scale Used: 0-10 Numeric Aggravating Factor(s): Food Alleviating Factor(s): Nothing Associated Signs And Symptoms: Positive: Constipation, Decreased Appetite, Nausea, Vomiting, Diarrhea - Allergies/Home Medications Allergies/Adverse Reactions: Allergies Allergy/AdvReac Type Severity Reaction Status Date / Time No Known Allergies Allergy Verified 12/08/17 12:40 Home Medications: Home Medications HYDROmorphone TAB* [Dilaudid TAB*] 4 mg PO BID PRN 12/08/17 [History Confirmed 12/08/17] LORazepam TAB(*) [Ativan 1 MG TAB (*)] 1 mg PO BID PRN 12/08/17 [History Confirmed 12/08/17] Ondansetron ODT TAB* [Zofran 4 MG Odt TAB*] 4 mg PO Q8H PRN 12/08/17 [History Confirmed 12/08/17] PMH/Surg Hx/FS Hx/Imm Hx Endocrine/Hematology History: Denies: Hx Diabetes, Hx Thyroid Disease Cardiovascular History: Reports: Hx Hypertension - on medication Denies: Hx Pacemaker/ICD Respiratory History: Reports: Hx Seasonal Allergies Denies: Hx Asthma, Hx Chronic Obstructive Pulmonary Disease (COPD) GI History: Reports: Hx Gastroesophageal Reflux Disease, Hx Ulcer - gerd History: Denies: Hx Dialysis, Hx Renal Disease Musculoskeletal History: Reports: Hx Back Problems - right leg Sensory History: Reports: Hx Contacts or Glasses Denies: Hx Hearing Aid Opthamlomology History: Reports: Hx Contacts or Glasses Neurological History: Reports: Other Neuro Impairments/Disorders - PAIN CLINIC PATIENT Psychiatric History: Denies: Hx Panic Disorder - Surgical History Surgery Procedure, Year, and Place: Lt - achilles tendon - Immunization History Date of Tetanus Vaccine: Up to date Date of Influenza Vaccine: Fall 2011 Infectious Disease History: No Infectious Disease History: Denies: Hx Clostridium Difficile, Hx Hepatitis, Hx Human Immunodeficiency Virus (HIV), Hx of Known/Suspected MRSA, Hx Shingles, Hx Tuberculosis, Hx Known/ Suspected VRE, Hx Known/Suspected VRSA, History Other Infectious Disease, Traveled Outside the [place] in Last 30 Days - Family History Known Family History: Positive: Hypertension, Other - Mother had lung CA. Father had a CVA. Family History: Both parents. - Social History Alcohol Use: Occasionally Alcohol Amount: cocktail nightly Substance Use Type: Reports: None Hx Tobacco Use: Yes Smoking Status (MU): Former Smoker Type: Cigars Review of Systems Negative: Fever Negative: Epistaxis Negative: Cough Positive: Abdominal Pain, Vomiting, Diarrhea, Nausea All Other Systems Reviewed And Are Negative: Yes Physical Exam - Summary Physical Exam Summary: Appearance: The patient is well-nourished and in no acute pain. The patient is in moderate distress. Skin: The skin is warm and dry and skin color reflects adequate perfusion. HEENT: The head is normocephalic and atraumatic. The pupils are equal and reactive. The conjunctivae are clear and without drainage. Nares are patent and without drainage. Mouth reveals moist mucous membranes and the throat is without erythema and exudate. The external ears are intact. The ear canals are patent and without drainage. The tympanic membranes are intact. Neck: the neck is supple with full range of motion and non-tender. There are no carotid bruits. There is no neck vein distension. Respiratory: Chest is non-tender. Lungs are clear to auscultation and breath sounds are symmetrical and equal. Cardiovascular: Heart is regular rate and rhythm. There is no murmur or rub auscultated. There is no peripheral edema and pulses are symmetrical and equal. Abdomen: The abdomen is soft and non-tender. There are normal bowel sounds heard in all four quadrants and there is no organomegaly palpated. Musculoskeletal: There is no back tenderness noted. Extremities are non-tender with full range of motion. There is good capillary refill. There is no peripheral edema or calf tenderness elicited. Neurological: Patient is alert and oriented to person, place and time. The patient has symmetrical motor strength in all four extremities. Cranial nerves are grossly intact. Deep tendon reflexes are symmetrical and equal in all four extremities. Psychiatric: The patient has an appropriate affect and does not exhibit any anxiety or depression. Triage Information Reviewed: Yes Vital Signs On Initial Exam: Initial Vitals Temp Pulse Resp BP Pulse Ox 97.1 F 68 16 179/100 99 12/08/17 12:36 12/08/17 12:36 12/08/17 12:36 12/08/17 12:36 12/08/17 12:36 Vital Signs Reviewed: Yes Diagnostics - Vital Signs Vital Signs Temp Pulse Resp BP Pulse Ox 12/08/17 13:14 66 31 154/110 99 12/08/17 13:05 68 19 167/110 100 12/08/17 13:02 75 99 12/08/17 12:36 97.1 F 68 16 179/100 99 - Laboratory Lab Results: Lab Results 12/08/17 Range/Units 13:13 INR (Anticoag Therapy) 0.90 (0.77-1.02) APTT 31.9 (26.0-36.3) seconds Result Diagrams: 12/08/17 13:27 12/08/17 13:13 Lab Statement: Any lab studies that have been ordered have been reviewed, and results considered in the medical decision making process. Abdominal Pain Fem Course/Dx - Course Course Of Treatment: Mr. Klein presented with symptoms he has had many time and have been W/U's with a diagnosis of CVS. They have been going on for 10 days and he says he is drinking fluids but not keeping solid down. He improved a lot here with IV NS and medications (ativan, dilaudid and reglan). His BUN and creatinine were elevated as they have been in the past. They normally improved quickly with fluids and I suggested another liter of NS, however he was keeping PO fluid down well at that point and declined. - Diagnoses Provider Diagnoses: Abdominal pain Discharge - Sign-Out/Discharge Documenting (check all that apply): Discharge/Admit/Transfer - Discharge Plan Condition: Stable Disposition: HOME Patient Education Materials: Abdominal Pain (ED) Referrals: Jessica Valenzuela MD [Primary Care Provider] - 2 Days Additional Instructions: Follow up with primary care physician in 2-3 days. Return to the emergency department for any new or worsening symptoms. - Billing Disposition and Condition Condition: STABLE Disposition: HOME The documentation as recorded by the Vidal woodard Elizabeth accurately reflects the service I personally performed and the decisions made by me, Kolby Rueda MD.
== END 2017-12-08 16:43 | disposition home or self-care (01) ==
LOC: ED 12:26
DX: R10.9 Unspecified abdominal pain (principal); I10 Essential (primary) hypertension; K21.9 Gastro-esophageal reflux disease without esophagitis; Z87.891 Personal history of nicotine dependence
CPT/HCPCS: 36415; 80053; 82150; 82550; 83605; 83690; 83735; 83880; 84484; 85025; 85610; 85730; 86140; 93005; 96360; 96374; 96375; 99283; A9270-GY; J1170; J2765

== ENCOUNTER 2018-06-06 11:04 | Emergency (ER) | payer MEDICARE, OTHER ==
[2018-06-06 11:43] LABS: ABS Basophils 0.1 10^3/ul (0-0.2); ABS Eosinophils 0.1 10^3/ul (0-0.6); ABS Lymphocytes 1.3 10^3/ul (1.0-4.8); ABS Monocytes 1.2 10^3/ul (0-0.8); ABS Neutrophils 7.5 10^3/ul (1.5-7.7); ABS Nucleated RBC 0 10^3/ul; Eosinophil % 0.8 % (0-6); Hematocrit 45 % (42-52); Hemoglobin 15.2 g/dl (14.0-18.0); Lymphocyte % 12.7 % (25-47); Mean Corpuscular HGB Conc 34 g/dl (31-36); Mean Corpuscular Hemoglobin 33 pg (27-31); Mean Corpuscular Volume 97 fL (80-94); Mean Platelet Volume 9.8 um3 (7.4-10.4); Nucleated Red Blood Cells % 0.1; Platelet Count 177 10^3/ul (150-450); Red Blood Count 4.62 10^6/ul (4.00-5.40); Red Cell Distribution Width 13 % (10.5-15); White Blood Count 10.3 10^3/ul (3.5-10.8)
--- OUTSIDE RECORDS SUMMARY | 2018-06-06 11:45 | XMS REPORT ---
:1950 External Reference #:[id number] Author Organization [employer] Address [address] [place] [address] [address] [place] [address] Phone [phone] Care Team Providers Name Role Phone Jessica Valenzuela MD Primary Care Physician Unavailable Payers Type Date Identification Numbers Payment Provider Subscriber Medicare Primary Effective: Policy Number: Medicare Michael Klein 2016 [id number] PayID: [id number] [address] [place] [address] Commercial Policy Number: [id number] [facility] Michael Klein PayID: [id number] [address] [place] [address] Medigap Part B Effective: 2014 Policy Number: [employer] Karime Klein [id number] Expires: 2017 PayID: [id number] [address] [address] [place] [address] Medigap Part B Effective: 2010 Policy Number: BS Sawyer HERCUL[employer] Karime Klein [id number] Expires: 2012 Group Number: [id number] [address] [address] PayID: [id number] [place] [address] Problems Date Description Provider Status Onset: 05/27/2012 Benign essential hypertension Diane Washburn M.D. Onset: 05/27/2012 Hyperlipidemia Diane Washburn M.D. Onset: 05/27/2012 Electrocardiogram abnormal Diane Washburn M.D. Onset: 11/04/2015 Localized, primary osteoarthritis Bradley Gill M.D. Active Onset: 11/04/2015 Derangement of knee Bradley Gill M.D. Active Onset: 12/10/2015 Essential hypertension Diane Washburn M.D. Onset: 08/23/2016 Enthesopathy of knee Bradley Gill M.D. Active Family History Date Family Member(s) Problem(s) Comments General cancer in immediate family Social History Type Date Description Comments Marital Status Lives With Occupation retired manufacturing Cigarette Use Never Smoked Cigarettes occassional cigar, 1-2 times per year ETOH Use Drinks 1 Alcoholic Beverage Per Day Smoking 1 cigar occ 1x/week quit Smoking Patient is a former smoker Daily Caffeine Does Not Consume Caffeine Exercise Type/Frequency Exercises regularly 1.5-2 miles walking with dogs Allergies, Adverse Reactions, Alerts Date Description Reaction Status Severity Comments 06/08/2017 NKDA active 12/12/2006 NKDA inactive 03/27/2007 Zetia inactive not tolerated due to eevated b/p Medications Medication Date Status Form Strength Qnty SIG Indications Ordering Provider [facility] 03/16 Active Tablets 7.5mg 60tab take 1-2 M23.8x2 s tabs by gt Gill M.D. daily as needed pain relief Zocor 12/09 Active Tablets 20mg 1 [facility] Bennie Vitamin B 12 06/17 Active 1 po qd Rich Aleman M.D. Norvasc 03/27 Active Tablets 10mg 90tab 1 by mouth s every day Rich Aleman M.D. Prilosec 12/[address] 20mg 20cap 1 PO qd Qutayb s Rich Aleman M.D. Atenolol Active Tablets 50mg 1 po qd Qutayb Rich Aleman M.D. Cozaar Active Tablets 50mg 1 po am Dilaudid Active Tablets 4mg 120ta 1-2 tab po bs qid prn stomach pain (hasnt used in over a year) Lorazepam Active Tablets 1mg 120ta 1 q 6 / bs hours prn Nortriptyline HCL Active Capsules 50mg 1 by mouth Unknown /0000 every day Zetia 0000 Active Tablets 10mg 1 by mouth Unknown /0000 every day Zocor 12/26 Hx Tablets 40mg 30tab Alternatin s g 08/07 and S. - 1 by mouth [facility] 12/09 every , M.D. other day at bedtime Zocor 12/17 Hx Tablets 80mg 90tab 1 po q [facility] , [facility] Zocor 12/13 Hx Tablets 40mg 30tab 1 po qhs [facility] 12[facility] , M.D. Atenolol 10/12 Hx Tablets 50mg 135ta 1 po am [facility] /2010 Cozaar 10/12 Hx Tablets 50mg 1 po qd [facility] , M.D[facility] /2010 Niaspan 10/12 Hx Tablets ER 1000mg 180ta 2 po q [facility] , M.D. Zocor 04/16 Hx Tablets 60mg One Q [facility] , M.D[facility] Zocor 04/16 Hx Tablets 40mg 90tab 1/2 PO Q [facility] , M.D. Zocor 02/09 Hx Tablets 40mg 90tab 1 PO QHS Qutaybeh s S. - [facility] 04/16 , M.D. Niaspan 02/09 Hx Tablets ER 500mg 180ta 2 po pm [facility] , [facility] Zocor 09/19 Hx Tablets 20mg 90tab one q Qutaybeh s S. - [facility] 02/09 , M.D. /2007 Zocor 06/21 Hx Tablets 10mg 30tab 1 PO hs Qutaybeh s S. - [facility] 09/19 , M.D. /2007 Dilaudid 03/27 Hx Tablets 4-6 QHRS Qutayb prn gi S. - distress [facility] 04/16 , M.D. /2007 Atenolol 03/27 Hx Tablets 50mg 1 PO am Qutayb and 1/2 pm S. - [facility] 10/12 , M.D. /2009 Coq-10 01/07 Hx Capsules 1 po qd Qutayb S. - [facility] 09/19 , M.D. /2007 Lipitor 12/12 Hx Tablets 10mg 45tab 1 PO qd Qutayb s S. - [facility] 05/15 , M.D. /2006 Clobetasol 12/12 Hx Cream 0.05% apply to Qutaybeh affected S. - area prn [facility] 04/16 bid , M.D. /2007 Ambien CR 12/12 Hx Tablets ER 12.5mg 1 Tablet Qutayb PO Q hs [facility] , M.D. /2006 Dilaudid 12/12 Hx Tablets 4mg prn Qutayb S. - [facility] 12/12 , M.D. /2006 Cyanocobalamin 12/12 Hx Tablets 250McG 1 po qd Qutayb S. - [facility] 12/12 , M.D. /2006 Nasonex 12/12 Hx Suspension 50McG/Act 2 Sprays tayb Both S. - Nostrils Maghaydah 12/12 qd , M.D. /2006 GI Cocktail 12/12 Hx 50cc q 12 hr Qutayb prn S. - [facility] 12/12 , M.D. /2006 Atarax 12/12 Hx Tablets 25mg 1 -2 Qutayb Tablet P0 S. - qid prn [facility] 12/12 , M.D. /2006 Triamcinolone 12/12 Hx Cream 0.1% 60gm Apply prn Qutaybeh Acetonide /2007 S. - [facility] 04/16 , M.D. /2007 Zyrtec 12/12 Hx Tablets 10mg 90tab 1 PO qd s . [facility] , .D. Hydrochlorothiazi 12/12 Hx Tablets 25mg 90tab 1 PO qd [facility] . [facility] , .D. Imipramine HCL 12/12 Hx Tablets 50mg 1 po q pm . [facility] 12[facility] , .D. Lorazepam 12/12 Hx Tablets 1mg 1 PO tid prn . [facility] , .D. Atenolol 12/12 Hx Tablets 50mg 1 PO bid . [facility] 03/27 , .D. Cozaar 12/12 Hx Tablets 50mg 1 PO bid [facility] 10/12 , .D. Albuterol 12/12 Hx Aerosol 90McG/Act 2 Puffs qid prn . [facility] , .D. Zetia 12/12 Hx Tablets 10mg 30tab 1 [facility] , .D. Vitamin B12 12/12 Hx 100 mg qd . [facility] 06[facility]17 , M.D. Norvasc 12/12 Hx Tablets 5mg 30tab one po qd s [facility] 03/27 , .D. Zocor 00 Hx Tablets 20mg 1 po qhs Unknown /0000 - 12/26 Ondansetron HCL 00 Hx Tablets 4mg 30tab one by Unknown /0000 s mouth - every 8 12/28 hours needed for nausea Medications Administered in Office Medication Date Status Form Strength Qnty SIG Indications Ordering Provider Depomedrol Administered Injection Bradley 40MG 017 Bennie Gill Depomedrol Administered Injection Maisha 40MG 016 Kevin, ANP-C Vital Signs Date Vital Result Comment 06/08/2017 Height 70 inches 5'10" Weight 209.12 lb without shoes Heart Rate 72 /min BP Systolic Sitting 142 mmHg LA, reg cuff BP Diastolic Sitting 76 mmHg LA, reg cuff BMI (Body Mass Index) 30.0 kg/m2 Ejection Fraction 60%-65% echo 01/20/16 11/20/2016 Height 70 inches 5'10" Weight 210.00 lb Heart Rate 85 /min BP Systolic 151 mmHg BP Diastolic 100 mmHg Respiratory Rate 16 /min Pain Level 7 BMI (Body Mass Index) 30.1 kg/m2 10/23/2016 Height 70 inches 5'10" Weight 113.50 lb with boots Heart Rate 76 /min BP Systolic Sitting 146 mmHg LA lrg cuff BP Diastolic Sitting 78 mmHg LA lrg cuff BMI (Body Mass Index) 16.3 kg/m2 Ejection Fraction 60% - 65% echo 01/20/16 08/23/2016 Height 70 inches 5'10" Weight 215.00 lb Pain Level 6 BMI (Body Mass Index) 30.8 kg/m2 03/16/2016 Height 70 inches 5'10" Weight 215.00 lb Pain Level 5 BMI (Body Mass Index) 30.8 kg/m2 01/26/2016 Height 70 inches 5'10" Weight 215.00 lb Heart Rate 64 /min BP Systolic Sitting 144 mmHg BP Diastolic Sitting 80 mmHg Respiratory Rate 16 /min Pain Level 7 for seconds with specific movements BMI (Body Mass Index) 30.8 kg/m2 12/10/2015 Height 70 inches 5'10" Weight 215.00 lb with shoes Heart Rate 66 /min BP Systolic 140 mmHg LA lrg cuff BP Diastolic 80 mmHg LA lrg cuff BMI (Body Mass Index) 30.8 kg/m2 Ejection Fraction 60%-65% echo 12/16/14 11/04/2015 Height 70 inches 5'10" Weight 210.00 lb Heart Rate 88 /min BP Systolic 130 mmHg BP Diastolic 83 mmHg BMI (Body Mass Index) 30.1 kg/m2 12/29/2014 Height 70 inches 5'10" Weight 208.25 lb w/ shoes Heart Rate 94 /min BP Systolic Sitting 142 mmHg LA, reg BP Diastolic Sitting 86 mmHg LA, reg BMI (Body Mass Index) 29.9 kg/m2 Ejection Fraction 60-65% 12/16/14 ECHO 11/30/2014 Height 70 inches 5'10" Weight 208.25 lb w/shoes Heart Rate 74 /min BP Systolic Sitting 138 mmHg LA reg cuff BP Diastolic Sitting 86 mmHg LA reg cuff Respiratory Rate 12 /min BMI (Body Mass Index) 29.9 kg/m2 Ejection Fraction 60-65 02/17/13 echo 06/17/2014 Height 70 inches 5'10" Weight 204.00 lb Heart Rate 78 /min BP Systolic Sitting 128 mmHg LA, reg BP Diastolic Sitting 80 mmHg LA, reg Respiratory Rate 12 /min BMI (Body Mass Index) 29.3 kg/m2 02/21/2013 Height 70 inches 5'10" Weight 187.00 lb Heart Rate 64 /min BP Systolic Sitting 112 mmHg BP Diastolic Sitting 72 mmHg Respiratory Rate 16 /min BMI (Body Mass Index) 26.8 kg/m2 05/27/2012 Height 70 inches 5'10" Weight 198.00 lb Heart Rate 80 /min BP Systolic Sitting 122 mmHg BP Diastolic Sitting 90 mmHg Respiratory Rate 16 /min BMI (Body Mass Index) 28.4 kg/m2 02/08/2011 Height 70 inches 5'10" Weight 201.00 lb Heart Rate 72 /min BP Systolic Sitting 124 mmHg BP Diastolic Sitting 82 mmHg BMI (Body Mass Index) 28.8 kg/m2 10/12/2009 Height 70 inches 5'10" Weight 212.00 lb Heart Rate 68 /min reg BP Systolic Sitting 134 mmHg BP Diastolic Sitting 84 mmHg BMI (Body Mass Index) 30.4 kg/m2 03/10/2009 Weight 211.00 lb Heart Rate 72 /min BP Systolic Sitting 130 mmHg BP Diastolic Sitting 90 mmHg Respiratory Rate 16 /min 09/29/2008 Weight 221.00 lb Heart Rate 84 /min BP Systolic Sitting 152 mmHg BP Diastolic Sitting 80 mmHg Respiratory Rate 16 /min 04/16/2008 Height 70 inches 5'10" Weight 213.00 lb Heart Rate 78 /min BP Systolic Sitting 120 mmHg BP Diastolic Sitting 80 mmHg Respiratory Rate 16 /min BMI (Body Mass Index) 30.6 kg/m2 09/19/2007 Height 70 inches 5'10" Weight 217.00 lb Heart Rate 78 /min reg BP Systolic Sitting 124 mmHg BP Diastolic Sitting 86 mmHg BMI (Body Mass Index) 31.1 kg/m2 05/15/2007 Height 70 inches 5'10" Weight 213.50 lb Heart Rate 64 /min reg BP Systolic Sitting 104 mmHg BP Diastolic Sitting 86 mmHg BP Systolic Standing 120 mmHg BP Diastolic Standing 84 mmHg BMI (Body Mass Index) 30.6 kg/m2 03/27/2007 Height 70 inches 5'10" Weight 201.75 lb Heart Rate 58 /min reg BP Systolic Sitting 140 mmHg home unit:139/103 BP Diastolic Sitting 100 mmHg home unit:139/103 BMI (Body Mass Index) 28.9 kg/m2 01/07/2007 Height 70 inches 5'10" Heart Rate 78 /min reg BP Systolic Sitting 140 mmHg BP Diastolic Sitting 90 mmHg 12/12/2006 Height 70 inches 5'10" Weight 207.00 lb Heart Rate 61 /min BP Systolic Sitting 142 mmHg left arm, right arm 140/100 BP Diastolic Sitting 100 mmHg left arm, right arm 140/100 BP Systolic Standing 120 mmHg BP Diastolic Standing 88 mmHg BMI (Body Mass Index) 29.7 kg/m2 Results Test Date Test Result H/L Range Note Laboratory test finding 03/18/2015 Ast 29 U/L 13-39 Alt 29 U/L 7-52 Lipid Profile (Trig/Chol/HDL) 03/18/2015 Triglycerides 243 mg/dL 1 Cholesterol 202 mg/dL 2 HDL Cholesterol 67.3 mg/dL 3 LDL Cholesterol 86 mg/dL 4 Comp Metabolic Panel 03/18/2015 Sodium 136 mmol/L 133-145 Potassium 4.0 mmol/L 3.5-5.0 Chloride 102 mmol/L 101-111 Co2 Carbon Dioxide 27 mmol/L 22-32 Anion Gap 7 mmol/L 2-11 Glucose 108 mg/dL High 70-100 Blood Urea Nitrogen 15 mg/dL 6-24 Creatinine 1.04 mg/dL 0.67-1.17 BUN/Creatinine Ratio 14.4 8-20 Calcium 9.5 mg/dL 8.6-10.3 Total Protein 6.7 g/dL 6.4-8.9 Albumin 4.3 g/dL 3.2-5.2 Globulin 2.4 g/dL 2-4 Albumin/Globulin Ratio 1.8 1-3 Total Bilirubin 0.50 mg/dL 0.2-1.0 Alkaline Phosphatase 64 U/L 34-104 Egfr Non- 72.1 >60 Egfr 92.8 >60 5 Lipid Panel - [facility] 03/18/2015 Creatine Kinase(CK) 110 U/L 10-223 Lipid Profile (Trig/Chol/HDL) 12/24/2014 Triglycerides 296 mg/dL 6, 7 Cholesterol 235 mg/dL 6, 8 HDL Cholesterol 68.6 mg/dL 6, 9 LDL Cholesterol 107 mg/dL 6, 10 Comp Metabolic Panel 12/24/2014 Sodium 137 mmol/L 133-145 6 Potassium 4.0 mmol/L 3.5-5.0 6 Chloride 104 mmol/L 101-111 6 Co2 Carbon Dioxide 25 mmol/L 22-32 6 Anion Gap 8 mmol/L 2-11 6 Glucose 106 mg/dL High 70-100 6 Blood Urea Nitrogen 17 mg/dL 6-24 6 Creatinine 0.96 mg/dL 0.67-1.17 6 BUN/Creatinine Ratio 17.7 8-20 6 Calcium 9.4 mg/dL 8.6-10.3 6 Total Protein 6.8 g/dL 6.4-8.9 6 Albumin 4.4 g/dL 3.2-5.2 6 Globulin 2.4 g/dL 2-4 6 Albumin/Globulin Ratio 1.8 1-3 6 Total Bilirubin 0.60 mg/dL 0.2-1.0 6 Alkaline Phosphatase 65 U/L 34-104 6 Egfr Non- 79.1 >60 6 Egfr 101.7 >60 6, 11 Laboratory test finding 12/24/2014 Alt 31 U/L 7-52 6 Ast 33 U/L 13-39 6 Creatine Kinase(CK) 220 U/L 10-223 6, 12 Lipid Profile (Trig/Chol/HDL) 04/01/2012 Triglyceride 200 mg/dL 40-200 Cholesterol 221 mg/dL High Less Than 200 13 High Density Lipoprotein 87 mg/dL High 40-60 14 Cholesterol/HDL Ratio 2.54 AVERAGE 1-4.97 Low Density Lipoprotein 94 mg/dL Less Than 100 15 Laboratory test finding 04/01/2012 Glucose 89 mg/dL 70-100 CBC No Diff 02/07/2011 White Blood Count 8.6 CUMM 4.8-10.8 Red Cell Count 4.40 CUMM Low 4.6-6.2 Hemoglobin 14.6 g/dL 14.0-18.0 Hematocrit 44 % 42-52 Mean Corpuscular Volume 101 um3 High 80-94 Mean Corpuscular Hemoglob 33 pg High 27-31 Mean Corpuscular HGB Cone 33 g/dL 32-36 Redcell Distribution WDTH 14 % 10.5-15 Platelet Count 112 CUMM Low 150-450 Mean Platelet Volume 9.3 um3 7.4-10.4 Comp Metabolic Panel 02/07/2011 Sodium 140 mmol/L 135-145 Potassium 4.1 mmol/L 3.5-5.0 Chloride 106 mmol/L 101-111 Co2 (Carbon Dioxide) 27.0 mmol/L 22-32 Anion Gap 7.0 mmol/L 2-11 16 Glucose 105 mg/dL High 70-100 BUN 11 mg/dL 6-24 Creatinine 1.00 mg/dL 0.50-1.40 One Over Creatinine 1.00 BUN/Creatinine Ratio 11.0 8-20 Calcium 9.3 mg/dL 8.1-9.9 Total Protein 6.4 GM/DL 6.2-8.1 Albumin 4.0 GM/DL 3.6-5.4 Globulin 2.4 GM/DL 2-4 Albumin/Globulin Ratio 1.7 1-3 Bilirubin Total 0.5 mg/dL 0.4-1.5 17 Alkaline Phosphatase 62 U/L 39-117 Alt (SGPT) 26 U/L 17-63 Ast (Sgot) 34 U/L 12-42 eGFR Non- 76.5 > 60 eGFR 98.4 > 60 18 Lipid Profile (Trig/Chol/HDL) 02/07/2011 Triglyceride 318 mg/dL High 40- 200 Cholesterol 206 mg/dL High Less Than 200 19 High Density Lipoprotein 75 mg/dL High 40-60 20 Cholesterol/HDL Ratio 2.75 AVERAGE 1-4.97 Low Density Lipoprotein 67 mg/dL Less Than 100 21 Lipid Profile (Trig/Chol/HDL) 01/29/2008 Triglyceride 350 mg/dL High 40- 200 22 Cholesterol 260 mg/dL High Less Than 200 22, 23 High Density Lipoprotein 54 mg/dL 40-60 22, 24 Cholesterol/HDL Ratio 4.81 AVERAGE 1-4.97 22 Low Density Lipoprotein 136 mg/dL High Less Than 100 22, 25 Liver Function Panel 01/29/2008 Total Protein 7.3 GM/DL 6.2-8.1 22 Albumin 4.2 GM/DL 3.6-5.4 22 Globulin 3.1 GM/DL 2-4 22 Albumin/Globulin Ratio 1.4 1-3 22 Bilirubin Total 0.8 mg/dL 0.4-1.5 22 Bilirubin Direct 0.2 mg/dL 0.1-0.5 22 Indirect Bilirubin 0.6 mg/dL 0.1-0.75 22 Alkaline Phosphatase 68 U/L 39-117 22 Alt (SGPT) 32 U/L 17-63 22 Ast (Sgot) 27 U/L 12-42 22 Laboratory test finding 09/18/2007 CPK (Creatine Kinase) 188 U/L 0-200 Liver Function Panel 09/18/2007 Albumin/Globulin Ratio 1.5 1-3 Albumin 4.3 GM/DL 3.6-5.4 Alkaline Phosphatase 68 U/L 39-117 Alt (SGPT) 43 U/L 17-63 Ast (Sgot) 41 U/L 12-42 Bilirubin Direct 0.4 mg/dL 0.1-0.5 Globulin 2.9 GM/DL 2-4 Indirect Bilirubin 1.2 mg/dL High 0.1-0.75 Bilirubin Total 1.6 mg/dL High 0.4-1.5 Total Protein 7.2 GM/DL 6.2-8.1 Lipid Profile 09/18/2007 Cholesterol/HDL Ratio 4.42 AVERAGE 1-4.97 (Trig/Chol/HDL) Cholesterol 265 mg/dL High Less Than 200 26 Triglyceride 239 mg/dL High 40-200 High Density Lipoprotein 60 mg/dL 40-60 27 Low Density Lipoprotein 157 mg/dL High Less Than 100 28 Basic Metabolic Panel 03/27/2007 One Over Creatinine 0.71 Anion Gap 9.0 mmol/L 2-11 29 BUN 26 mg/dL High 6-24 Calcium 9.8 mg/dL 8.7-10.2 Chloride 104 mmol/L 101-111 Co2 (Carbon Dioxide) 26.0 mmol/L 22-32 Glucose 123 mg/dL High 70-105 Potassium 5.3 mmol/L High 3.5-5.0 Sodium 139 mmol/L 135-145 BUN/Creatinine Ratio 18.6 8-20 Creatinine 1.4 mg/dL 0.5-1.4 Laboratory test finding 03/27/2007 CPK (Creatine Kinase) 159 U/L 0-200 1 Desirable <150 Borderline high 150-199 High 200-499 Very High >500 2 Desirable <200 Borderline high 200-239 High >239 3 Low <40 Desirable: 40-60 High: >60 4 Desirable: <100 mg/dL Near Optimal: 100-129 mg/dL Borderline High: 130-159 mg/dL High: 160-189 mg/dL Very High: >189 mg/dL 5 Because ethnic data is not always readily available, this report includes an eGFR for both -Americans and non- Americans. The National Kidney Disease Education Program (NKDEP) does not endorse the use of the MDRD equation for patients that are not between the ages of 18 and 70, are , have extremes of body size, muscle mass, or nutritional status, or are non- or non-. According to the National Kidney Foundation, irrespective of diagnosis, the stage of the disease is based on the level of kidney function: Stage Description GFR(mL/min/1.73 m(2)) 1 Kidney damage with normal or decreased GFR 90 2 Kidney damage with mild decrease in GFR 60-89 3 Moderate decrease in GFR 30-59 4 Severe decrease in GFR 15-29 5 Kidney failure <15 (or dialysis) 6 PT IS FASTING 7 Desirable <150 Borderline high 150-199 High 200-499 Very High >500 8 Desirable <200 Borderline high 200-239 High >239 9 Low <40 Desirable: 40-60 High: >60 10 Desirable: <100 mg/dL Near Optimal: 100-129 mg/dL Borderline High: 130-159 mg/dL High: 160-189 mg/dL Very High: >189 mg/dL 11 Because ethnic data is not always readily available, this report includes an eGFR for both -Americans and non- Americans. The National Kidney Disease Education Program (NKDEP) does not endorse the use of the MDRD equation for patients that are not between the ages of 18 and 70, are , have extremes of body size, muscle mass, or nutritional status, or are non- or non-. According to the National Kidney Foundation, irrespective of diagnosis, the stage of the disease is based on the level of kidney function: Stage Description GFR(mL/min/1.73 m(2)) 1 Kidney damage with normal or decreased GFR 90 2 Kidney damage with mild decrease in GFR 60-89 3 Moderate decrease in GFR 30-59 4 Severe decrease in GFR 15-29 5 Kidney failure <15 (or dialysis) 12 PT IS FASTING 13 CHOLESTEROL INTERPRETATION: Desirable: Less than 200 MG/DL Borderline-High Risk: 200-239 MG/DL High-Risk: 240 MG/DL and over 14 HDL INTERPRETATION: Undesirable: High Risk: Less than 40 MG/DL Desirable: Low Risk: Greater than 60 MG/DL 15 LDL INTERPRETATION: Low Risk Optimal Level: LDL Less than 100 MG/DL Near or Above Optimal: LDL 100-129 MG/DL Borderline High Risk: LDL 130-159 MG/DL High Risk: LDL 160-189 MG/DL Very High Risk: LDL Greater than 189 MG/DL 16 Anion gap measurement may be of limited value in the presence of any alkalosis, especially in a combined acid base disorder. . 17 A metabolite of Naproxen, O-desmethylnaproxen, has been shown to interfere with the Jendrassik-Camino method for measuring total bilirubin. Samples from patients who have taken Naproxen have shown spurious elevation in total bilirubin levels. 18 Because ethnic data is not always readily available, this report includes an eGFR for both -Americans and non- Americans. The National Kidney Disease Education Program (NKDEP) does not endorse the use of the MDRD equation for patients that are not between the ages of 18 and 70, are , have extremes of body size, muscle mass, or nutritional status, or are non- or non-. According to the National Kidney Foundation, irrespective of diagnosis, the stage of the disease is based on the level of kidney function: Stage Description GFR(mL/min/1.73 m(2)) 1 Kidney damage with normal or decreased GFR 90 2 Kidney damage with mild decrease in GFR 60-89 3 Moderate decrease in GFR 30-59 4 Severe decrease in GFR 15-29 5 Kidney failure <15 (or dialysis) 19 CHOLESTEROL INTERPRETATION: Desirable: Less than 200 MG/DL Borderline-High Risk: 200-239 MG/DL High-Risk: 240 MG/DL and over 20 HDL INTERPRETATION: Undesirable: High Risk: Less than 40 MG/DL Desirable: Low Risk: Greater than 60 MG/DL 21 LDL INTERPRETATION: Low Risk Optimal Level: LDL Less than 100 MG/DL Near or Above Optimal: LDL 100-129 MG/DL Borderline High Risk: LDL 130-159 MG/DL High Risk: LDL 160-189 MG/DL Very High Risk: LDL Greater than 189 MG/DL 22 FASTING 23 CHOLESTEROL INTERPRETATION: Desirable: Less than 200 MG/DL Borderline-High Risk: 200-239 MG/DL High-Risk: 240 MG/DL and over 24 HDL INTERPRETATION: Undesirable: High Risk: Less than 40 MG/DL Desirable: Low Risk: Greater than 60 MG/DL 25 LDL INTERPRETATION: Low Risk Optimal Level: LDL Less than 100 MG/DL Near or Above Optimal: LDL 100-129 MG/DL Borderline High Risk: LDL 130-159 MG/DL High Risk: LDL 160-189 MG/DL Very High Risk: LDL Greater than 189 MG/DL 26 Classification: High . 27 Classification: High . 28 CALCULATED LDL APPROXIMATES THE VALUE OF A DIRECT LDL MEASUREMENT. Classification: Borderline High . 29 Anion gap measurement may be of limited value in the presence of any alkalosis, especially in a combined acid base disorder. . Procedures Date CPT Code Description Status 09/13/2017 94416 Holter Monitor Review (24 hr)dr review & interp only Completed 09/11/2017 73444 ECG Monitor/Recording W/Visual Superimposition Scanning Completed 07/16/2017 89959 ECHO Transthoracic, Real-Time 2D With Doppler And Color Completed Flow 06/08/2017 87884 EKG Tracing & Interpretation Completed 12/08/2016 96906 Destruction Of Benign Lesions Any Method 1-14 lesions Completed 10/23/2016 85884 EKG Tracing & Interpretation Completed 08/23/2016 47331 Inject/Drain Joint/Bursa Major W/O US Completed 03/16/2016 22820 Inject/Drain Joint/Bursa Major W/O US Completed 01/20/2016 36907 ECHO Transthoracic, Real-Time 2D With Doppler And Color Completed Flow 12/10/2015 13808 EKG Tracing & Interpretation Completed 12/16/2014 87449 ECHO Transthoracic, Real-Time 2D With Doppler And Color Completed Flow 11/30/2014 66393 EKG Tracing & Interpretation Completed 06/17/2014 77630 EKG Tracing & Interpretation Completed 02/21/2013 50904 EKG Tracing & Interpretation Completed 02/18/2013 78258 EKG, Interpretation Only Completed 02/17/2013 81352 ECHO Transthorasic Realtime 2D W Doppler & Color Flow Completed Hosp 02/17/2013 11323 Pulse Wave/Continuous-Interp.RPT Completed 02/17/2013 81221 Color Flow Doppler/Interp & Reprt Completed 05/27/2012 98429 EKG Tracing & Interpretation Completed 02/08/2011 21260 EKG Tracing & Interpretation Completed 03/10/2009 78897 EKG Tracing & Interpretation Completed 01/01/2009 06520 ECHO Transthoracic, Real-Time 2D With Doppler And Color Completed Flow 09/29/2008 26561 EKG Tracing & Interpretation Completed 04/16/2008 45587 EKG Tracing & Interpretation Completed 04/16/2008 32242 EKG Tracing & Interpretation Completed 01/01/2007 39852 Stress Test Completed 01/01/2007 50479 Stress Test Completed 01/01/2007 91368 Echocardiogram Completed 01/01/2007 57440 Echocardiogram Completed 01/01/2007 79907 Pulse Doppler & Continuous Wave Completed 01/01/2007 88426 Color Doppler Completed 01/01/2007 15018 Color Doppler Completed 01/01/2007 18491 ECHO/Stress Completed 12/12/2006 39086 EKG Tracing & Interpretation Completed 12/12/2006 29185 EKG Tracing & Interpretation Completed Encounters Type Date Location Provider CPT E/M Dx Office Visit 06/08/2017 2:20p [facility] Charles Aleman, 95528 I10 Bennie E78.4 E66.9 I77.810 I44.0 R42 Office Visit 01/06/2017 6:48a [facility], Jaclyn Villalobos, 14842 E86.0 Hospitalists Bennie G43.A1 Office Visit 12/08/2016 9:50a [facility] [address] L82.1 I83.12 I83.11 D23.61 B35.1 L82.0 Z78.9 Office Visit 11/20/2016 9:00a [facility] M.D. 05055 M17.12 Melina M23.8x2 Office Visit 10/23/2016 3:00p [facility] Charles Aleman, 74755 I71.2 MAlton I10 E78.4 E66.9 I44.0 R94.31 Office Visit 08/23/2016 10:30a [facility] Bradley Gill 51900 M70.52 Of Melina Avery Office Visit 01/26/2016 8:15a [facility] Bradley Gill 26439 M23.8x2 Of Melina Avery M17.12 Office Visit 12/10/2015 1:40p [facility] Qutaybeh S. Maghaydah, 03849 E78.4 M.D. I10 I71.2 R94.31 Office Visit 11/04/2015 8:30a [facility], 60643 M17.12 C.M.AValentina Avery M23.8x2 Office Visit 12/29/2014 11:00a [facility] RYAN Wayne 44120 272.4 401.1 447.71 Office Visit 11/30/2014 3:40p [facility] Qutaybeh S. Maghaydah, 40284 401.1 M.D. 272.4 441.2 Office Visit 06/17/2014 9:00a [facility] Qutaybeh S. Maghaydah, 74090 401.1 M.D. 272.4 441.2 Office Visit 02/21/2013 3:00p [facility] Qutaybeh S. Maghaydah, 00550 401.1 M.D. 272.4 794.31 Office Visit 02/18/2013 9:14a [facility], Sri Mina, 57728 780.2 Hospitalists M.D. v15.88 Office Visit 02/17/2013 9:13a [facility], Sri Mina, 60115 780.2 Hospitalists M.D. v15.88 Office Visit 05/27/2012 9:00a [facility] Qutaybeh S. Maghaydah, 96349 401.1 M.D. 272.4 794.31 Office Visit 02/08/2011 11:00a [facility] Qutaybeh S. Maghaydah, 03558 401.1 M.D. 272.4 424.0 794.31 Office Visit 10/12/2009 9:00a [facility] Qutaybeh S. Maghaydah, 20543 401.1 M.D. 424.0 272.4 Office Visit 03/10/2009 9:40a [facility] Qutaybeh S. Maghaydah, 55836 401.1 M.D. 424.0 272.4 Office Visit 09/29/2008 11:10a [facility] Charles Aleman, 82882 272.4 M.D. 401.1 424.0 794.31 Office Visit 04/16/2008 9:00a [facility] Charles Aleman, 33160 272.4 M.D. 401.1 424.0 794.31 Office Visit 09/19/2007 11:20a [facility] Charles OlivoValentina Nighatodalis, 55530 272.4 M.D. 427.69 780.2 401.1 Office Visit 05/15/2007 9:20a [facility] Charles OlivoValentina Nighatodalis, 46128 401.0 M.D. 780.2 272.4 427.69 Office Visit 03/27/2007 9:40a [facility] Charles OlivoValentina Nighatodalis, 14433 401.0 M.D. 780.2 272.4 427.69 Office Visit 01/07/2007 9:40a [facility] Charles OlivoValentina Cervantesabdielodalis, 34921 401.0 M.D. 780.2 272.4 427.69 Office Visit 12/12/2006 9:20a [facility] Charles OlivoValentina Nighatodalis, 92105 780.2 M.D. 401.0 272.4 427.69 Plan of Care 06/08/2017 - Charles Aleman M.D.I10 Essential (primary) hypertensionFollow up:8 months ovE78.4 Other zrsqmhrmgzzdqrF91.9 Obesity, ouuqkaduptcA87.810 Thoracic aortic ojkzzpfM32.0 Atrioventricular block, first nsbyrgP46 Dizziness and giddiness
--- OUTSIDE RECORDS SUMMARY | 2018-06-06 11:45 | XMS REPORT ---
:1950 External Reference #:[id number] Author Organization [employer] Address [address] [place] [address] [address] [place] [address] Phone [phone] Care Team Providers Name Role Phone Jessica Valenzuela MD Primary Care Physician Unavailable Payers Type Date Identification Numbers Payment Provider Subscriber Medicare Primary Policy Number: [id number] Medicare Michael Klein PayID: [id number] [address] [place] [address] Medigap Part B Effective: 2016 Policy Number: Medicare Michael Klein [id number] Expires: 2018 PayID: [id number] [address] [place] [address] Commercial Policy Number: [id number] [facility] Michael Klein PayID: [id number] [address] [place] [address] Medigap Part B Effective: 2014 Policy Number: DARRELL Morales Karime Klein [id number] Expires: 2017 PayID: [id number] [address] [place] [place] [address] Medigap Part B Effective: 2010 Policy Number: [place] Latoya [id number] Expires: 2012 Group Number: [id number] [address] PayID: [id number] [place] [address] Problems Date Description Provider Status Onset: 05/27/2012 [...] Comments Marital Status Lives With Occupation retired [employer] Cigarette Use Never Smoked Cigarettes occassional cigar, [...] Form Strength Qnty SIG Indications Ordering Provider [facility] 03/16 Active Tablets 7.5mg 60tab take 1-2 M23.8x2 s tabs by gt Gill M.D. daily as needed pain relief Zocor 12/09 Active Tablets 20mg 1 by mouth annemarie every S. night at [facility] bedtime Bennie Vitamin B 12 06/17 Active 1 by mouth Charles every day Rich Aleman M.D. Norvasc 03/27 Active Tablets 10mg 90tab 1 by mouth Dania s every day Rich Aleman M.D. Prilosec 12/[address] 20mg 20cap 1 PO qd Dania s Rich Aleman M.D. Atenolol Active Tablets 50mg 1 po qd Qutayb Rich Aleman M.D. Cozaar Active Tablets 50mg 1 po am Unknown / Dilaudid Active Tablets 4mg 120ta 1-2 tab po Unknown / bs qid prn stomach pain (hasnt used in over a year) Lorazepam 00 Active Tablets 1mg 120ta 1 q 6 Unknown /0000 bs hours prn Nortriptyline HCL Active Capsules 50mg 1 by mouth Unknown / every day Zetia Active Tablets 10mg 1 by mouth Unknown / every day Zocor 12/26 Hx Tablets 40mg 30tab Alternatin s g 08/07 and S[facility] - [facility] every , [facility].D. /2015 other day at bedtime Zocor 12/17 Hx Tablets 80mg 90tab 1 po q [facility] , [facility] Zocor 12/13 Hx Tablets 40mg 30tab 1 po q [facility] , M.[facility] Atenolol 10/12 Hx Tablets 50mg 135ta 1 po am Qutayb bs and 08/07 pm [facility] , M.D. /2010 Cozaar 10/12 Hx Tablets 50mg 1 po qd [facility] , M.D. /2010 Niaspan 10/12 Hx Tablets ER 1000mg 180ta 2 po q [facility] , [facility]. /2011 Zocor 04/16 Hx Tablets 60mg One Q [facility] 04/16 , M.D. /2007 Zocor 04/16 Hx Tablets 40mg 90tab 1/2 PO Q [facility] s [facility] 12/13 , M.D. /2009 Zocor 02/09 Hx Tablets 40mg 90tab 1 PO Q Qutaybeh s S. - Maghaydah 04/16 , M.D. Niaspan 02/09 Hx Tablets ER 500mg 180ta 2 po pm [facility]ayb bs [facility] 10/12 , M.D. Zocor 09/19 Hx Tablets 20mg 90tab one q Qutayb s S. - Maghaydah 02/09 , M.D. /2007 Zocor 06/21 Hx Tablets 10mg 30tab 1 PO hs Qutayb s S. - Maghaydah 09/19 , M.D. [...] Clobetasol 12/12 Hx Cream 0.05% apply to yb affected S. - area prn Maghaydah 04/16 bid , M.D. /2007 Ambien CR 12/12 Hx Tablets ER 12.5mg 1 Tablet yb PO Q hs S. - prn Maghaydah 03/27 , M.D. /2006 Dilaudid 12/12 Hx Tablets 4mg prn Qutayb S. - Maghaydah 12/12 , M.D. /2006 Cyanocobalamin 12/12 Hx Tablets 250McG 1 po qd Qutayb S. - Maghaydah 12/12 , M.D. /2006 Nasonex 12/12 Hx Suspension 50McG/Act 2 Sprays tayb Both S. - Nostrils Maghaydah 12/12 qd , M.D. /2006 GI Cocktail 12/12 Hx 50cc q 12 hr tayb prn S. - Maghaydah 12/12 , M.D. /2006 Atarax 12/12 Hx Tablets 25mg 1 -2 tayb Tablet P0 S. - qid prn Maghaydah 12/12 , M.D. /2006 Triamcinolone 12/12 Hx Cream 0.1% 60gm Apply prn [facility] . [facility] , M.D. Zyrtec 12/12 Hx Tablets 10mg 90tab 1 PO qd [facility] s . [facility] 12/12 , M.D. /2006 Hydrochlorothiazi 12/12 Hx Tablets 25mg 90tab 1 PO qd [facility]beh s . [facility] 12/12 , M.D. /2006 Imipramine HCL 12/12 Hx Tablets 50mg 1 po q pm S. [facility] 12/12 , M.D. Lorazepam 12/12 Hx Tablets 1mg 1 PO tid prn . [facility] 12/12 , M.D. Atenolol 12/12 Hx Tablets 50mg 1 PO bid . [facility] 03/27 , M.D. Cozaar 12/12 Hx Tablets 50mg 1 PO bid [facility]b S. [facility] 10/12 , M.D. Albuterol 12/12 Hx Aerosol 90McG/Act 2 Puffs qid prn . [facility] 12[facility]12 , M.D. Zetia 12/12 Hx Tablets 10mg 30tab 1 PO qd yb s . [facility] 12/12 , M.D. Vitamin B12 12/12 Hx 100 mg qd [facility]b S. [facility] 06/17 , M.D. /2013 Norvasc 12/12 Hx Tablets 5mg 30tab one po qd [facility] 03/27 , M.D. /2006 Zocor 00 Hx Tablets 20mg 1 po qhs Unknown /0000 - 12/26 Ondansetron HCL 00/00 Hx Tablets 4mg 30tab one by Unknown /0000 s mouth - every 8 12/28 hours needed for nausea Medications Administered in Office Medication Date Status Form Strength Qnty SIG Indications Ordering Provider Depomedrol Administered Injection Bradley 40MG 017 Bennie Gill Depomedrol Administered Injection Maisha 40MG 016 TEZ Brown Vital Signs Date Vital Result Comment 05/28/2018 Height 70 inches 5'10" Weight 217.00 lb w/shoes Heart Rate 75 /min BP Systolic Sitting 150 mmHg LA, large BP Diastolic Sitting 88 mmHg LA, large BMI (Body Mass Index) 31.1 kg/m2 Ejection Fraction 55-60% Echo 07/16/17 06/08/2017 Height 70 inches 5'10" Weight 209.12 [...] Test Date Test Result H/L Range Note Lipid Panel - [facility] 03/18/2015 Creatine Kinase(CK) 110 U/L 10-223 Comp Metabolic Panel 03/18/2015 Sodium 136 mmol/L [...] Egfr Non- 72.1 >60 Egfr 92.8 >60 1 Lipid Profile (Trig/Chol/HDL) 03/18/2015 Triglycerides 243 mg/dL 2 Cholesterol 202 mg/dL 3 HDL Cholesterol 67.3 mg/dL 4 LDL Cholesterol 86 mg/dL 5 Laboratory test finding 03/18/2015 Ast 29 U/L 13-39 Alt 29 U/L 7-52 Laboratory test finding 12/24/2014 Alt 31 U/L 7-52 6 Ast 33 U/L 13-39 6 Creatine Kinase(CK) 220 U/L 10-223 6, 7 Comp Metabolic Panel 12/24/2014 Sodium 137 mmol/L [...] 79.1 >60 6 Egfr 101.7 >60 6, 8 Lipid Profile (Trig/Chol/HDL) 12/24/2014 Triglycerides 296 mg/dL 6, 9 Cholesterol 235 mg/dL 6, 10 HDL Cholesterol 68.6 mg/dL 6, 11 LDL Cholesterol 107 mg/dL 6, 12 Lipid Profile (Trig/Chol/HDL) 04/01/2012 Triglyceride [...] 157 mg/dL High Less Than 100 28 Laboratory test finding 03/27/2007 CPK (Creatine Kinase) 159 U/L 0-200 Basic Metabolic Panel 03/27/2007 One Over Creatinine 0.71 Anion Gap 9.0 mmol/L 2-11 29 BUN 26 mg/dL High 6-24 Calcium 9.8 mg/dL 8.7-10.2 Chloride 104 mmol/L 101-111 Co2 (Carbon Dioxide) 26.0 mmol/L 22-32 Glucose 123 mg/dL High 70-105 Potassium 5.3 mmol/L High 3.5-5.0 Sodium 139 mmol/L 135-145 BUN/Creatinine Ratio 18.6 8-20 Creatinine 1.4 mg/dL 0.5-1.4 1 Because ethnic data is not always readily [...] 15-29 5 Kidney failure <15 (or dialysis) 2 Desirable <150 Borderline high 150-199 High 200-499 Very High >500 3 Desirable <200 Borderline high 200-239 High >239 4 Low <40 Desirable: 40-60 High: >60 5 Desirable: <100 mg/dL Near Optimal: 100-129 mg/dL Borderline High: 130-159 mg/dL High: 160-189 mg/dL Very High: >189 mg/dL 6 PT IS FASTING 7 PT IS FASTING 8 Because ethnic data is not always readily [...] 15-29 5 Kidney failure <15 (or dialysis) 9 Desirable <150 Borderline high 150-199 High 200-499 Very High >500 10 Desirable <200 Borderline high 200-239 High >239 11 Low <40 Desirable: 40-60 High: >60 12 Desirable: <100 mg/dL Near Optimal: 100-129 mg/dL Borderline High: 130-159 mg/dL High: 160-189 mg/dL Very High: >189 mg/dL 13 CHOLESTEROL INTERPRETATION: Desirable: Less than 200 [...] has been shown to interfere with the Jendrassik-Dustin method for measuring total bilirubin. Samples from [...] . Procedures Date CPT Code Description Status 05/28/2018 92158 EKG Tracing & Interpretation Completed 09/13/2017 41171 Holter Monitor Review (24 hr)dr review & interp only Completed 09/11/2017 63890 ECG Monitor/Recording W/Visual Superimposition Scanning Completed 07/16/2017 02372 ECHO Transthoracic, Real-Time 2D With Doppler And Color Completed Flow 06/08/2017 00819 EKG Tracing & Interpretation Completed 12/08/2016 84534 Destruction Of Benign Lesions Any Method 1-14 lesions Completed 10/23/2016 47877 EKG Tracing & Interpretation Completed 08/23/2016 52073 Inject/Drain Joint/Bursa Major W/O US Completed 03/16/2016 71382 Inject/Drain Joint/Bursa Major W/O US Completed 01/20/2016 89218 ECHO Transthoracic, Real-Time 2D With Doppler And Color Completed Flow 12/10/2015 68546 EKG Tracing & Interpretation Completed 12/16/2014 61253 ECHO Transthoracic, Real-Time 2D With Doppler And Color Completed Flow 11/30/2014 61316 EKG Tracing & Interpretation Completed 06/17/2014 47698 EKG Tracing & Interpretation Completed 02/21/2013 31428 EKG Tracing & Interpretation Completed 02/18/2013 18654 EKG, Interpretation Only Completed 02/17/2013 79703 ECHO Transthorasic Realtime 2D W Doppler & Color Flow Completed Hosp 02/17/2013 24447 Pulse Wave/Continuous-Interp.RPT Completed 02/17/2013 35683 Color Flow Doppler/Interp & Reprt Completed 05/27/2012 43761 EKG Tracing & Interpretation Completed 02/08/2011 71099 EKG Tracing & Interpretation Completed 03/10/2009 85427 EKG Tracing & Interpretation Completed 01/01/2009 02656 ECHO Transthoracic, Real-Time 2D With Doppler And Color Completed Flow 09/29/2008 40640 EKG Tracing & Interpretation Completed 04/16/2008 82561 EKG Tracing & Interpretation Completed 04/16/2008 87260 EKG Tracing & Interpretation Completed 01/01/2007 75710 Stress Test Completed 01/01/2007 70290 Stress Test Completed 01/01/2007 30526 Echocardiogram Completed 01/01/2007 80408 Echocardiogram Completed 01/01/2007 83809 Pulse Doppler & Continuous Wave Completed 01/01/2007 73497 Color Doppler Completed 01/01/2007 09145 Color Doppler Completed 01/01/2007 88391 ECHO/Stress Completed 12/12/2006 34855 EKG Tracing & Interpretation Completed 12/12/2006 12229 EKG Tracing & Interpretation Completed Encounters Type Date Location Provider CPT E/M Dx Office Visit 05/28/2018 11:00a [facility] Charles Aleman, 45114 R42 M.D. I77.810 I10 E78.2 R94.31 I49.3 Office Visit 06/08/2017 2:20p [facility] Lorainetavishnu Aleman, 80681 I10 M.DValentina E78.4 E66.9 I77.810 I44.0 R42 Office Visit 01/06/2017 6:48a [facility], Jaclyn Villalobos, 56437 E86.0 Hospitalists M.DValentina G43.A1 Office Visit 12/08/2016 9:50a [facility] [address] L82.1 I83.12 I83.11 D23.61 B35.1 L82.0 Z78.9 Office Visit 11/20/2016 9:00a [facility] M.D. 68238 M17.12 C.Sagar M23.8x2 Office Visit 10/23/2016 3:00p [facility] Qutaybeh S. Maghaydah, 32281 I71.2 M.D. I10 E78.4 E66.9 I44.0 R94.31 Office Visit 08/23/2016 10:30a [facility] Bridget 17648 M70.52 Of Melina Avery Office Visit 01/26/2016 8:15a [facility] Palmdevin 44298 M23.8x2 Of Melina Avery M17.12 Office Visit 12/10/2015 1:40p [facility] Qutaybeh S. Maghaydah, 39766 E78.4 M.DValentina I10 I71.2 R94.31 Office Visit 11/04/2015 8:30a [facility] Palmino, 90248 M17.12 C.Sagar Avery M23.8x2 Office Visit 12/29/2014 11:00a [facility] RYAN Wayne 05318 272.4 401.1 447.71 Office Visit 11/30/2014 3:40p [facility] Qutaybeh S. Maghaydah, 85578 401.1 M.D. 272.4 441.2 Office Visit 06/17/2014 9:00a [facility] Qutaybeh S. Maghaydah, 76799 401.1 M.D. 272.4 441.2 Office Visit 02/21/2013 3:00p [facility] Qutaybeh S. Maghaydah, 42587 401.1 M.D. 272.4 794.31 Office Visit 02/18/2013 9:14a [facility], rSi Mina, 74199 780.2 Hospitalists M.D. v15.88 Office Visit 02/17/2013 9:13a [facility], Sri Mina, 73058 780.2 Hospitalists M.D. v15.88 Office Visit 05/27/2012 9:00a [facility] Qutaybeh S. Maghaydah, 52924 401.1 M.D. 272.4 794.31 Office Visit 02/08/2011 11:00a [facility] Qutaybeh S. Maghaydah, 59809 401.1 M.D. 272.4 424.0 794.31 Office Visit 10/12/2009 9:00a [facility] Qutaybeh S. Maghaydah, 67716 401.1 M.D. 424.0 272.4 Office Visit 03/10/2009 9:40a [facility] Qutaybeh S. Maghaydah, 64501 401.1 M.D. 424.0 272.4 Office Visit 09/29/2008 11:10a [facility] Qutaybeh S. Maghaydah, 57575 272.4 M.D. 401.1 424.0 794.31 Office Visit 04/16/2008 9:00a [facility] Qutaybeh S. Maghaydah, 19708 272.4 M.D. 401.1 424.0 794.31 Office Visit 09/19/2007 11:20a [facility] Qutaybeh S. Maghaydah, 05795 272.4 M.D. 427.69 780.2 401.1 Office Visit 05/15/2007 9:20a [facility] Qutaybeh S. Maghaydah, 60940 401.0 M.D. 780.2 272.4 427.69 Office Visit 03/27/2007 9:40a [facility] Qutaybeh S. Maghaydah, 68067 401.0 M.D. 780.2 272.4 427.69 Office Visit 01/07/2007 9:40a [facility] Qutaybeh S. Maghaydah, 69127 401.0 M.D. 780.2 272.4 427.69 Office Visit 12/12/2006 9:20a [facility] Qutaybeh S. Maghaydah, 03623 780.2 M.D. 401.0 272.4 427.69 Plan of Care Future Appointment(s):07/01/2018 2:00 pm - Dacia Morris [facility]ACT[facility]ILLER at [facility]06/14/2018 11:00 am - Nurse Visit IC at [facility]2017 11:15 am - Nurse Visit IC at [facility]06/21/2018 10:00 am - [place] ECHO Schedule at [facility]06/03/2018 1:30 pm - Nurse Visit cc at [facility]05/28/2018 - Charles Aleman M.D.R42 Dizziness and giddinessNew Orders:Ezbwwtsjyerrme61 hour holter monitorFollow up:EXTRACTOR FILLER ov one month to discuss echo and adceovU94.810 Thoracic aortic vxledzbO74 Essential ( primary) hypertensionFollow up:one week BP check hicyxR46.2 Mixed hyperlipidemiaFollow up:9 months ov with meR94.31 Abnormal electrocardiogram [ ECG] [EKG]I49.3 Ventricular premature depolarization
[2018-06-06 12:09] LABS: EGFR Non-African American 50.3 (>60)
--- NOTE | 2018-06-06 12:27 | RAD ---
Indication: Chest and abdominal pain. History of tobacco use. Comparison: May 24, [address] October 22, 2011 chest radiograph Technique: Upright AP 1205 hours Report: Small calcified granuloma at the mid to lower LEFT lung is chronic. No suspicious focal pulmonary lesions, alveolar consolidation, pleural effusion, pneumothorax. The heart, pulmonary vasculature, and mediastinal contours are unremarkable. IMPRESSION: #. No evidence for acute intrathoracic disease.
[2018-06-06] MEDS ORDERED: Ondansetron INJ* 2 MG/ML VIAL IV ONE (12:29)
[2018-06-06] MEDS ORDERED: Morphine INJ* 2 MG/ML 1 ML SYRINGE (TWO MG - NEW SYRINGE VERSION) IV ONE (12:29)
[2018-06-06] MEDS ORDERED: LORazepam INJ* 2 MG/ML 1 ML VIAL IV PUSH ONE (12:32)
[2018-06-06] MEDS ORDERED: NS 0.9% 1000 ML* 1,000 ML IV ONE (12:32)
[2018-06-06] MEDS ORDERED: Morphine INJ* 4 MG/ML 1 ML SYRINGE (NEW SYRINGE VERSION) ONE (12:33)
[2018-06-06] MEDS ORDERED: LORazepam INJ* 2 MG/ML 1 ML VIAL ONE (12:33)
--- NOTE | 2018-06-06 12:57 | ED ---
GI/ HPI - HPI Summary HPI Summary: This patient is a 67 year old M presenting to ED with a chief complaint of N/V since 4 days ago, which is the longest episode hes had in a while. The patient rates the pain 8/10 in severity. Symptoms aggravated by PO. He has not been able to take his BP pills due to the vomiting. Symptoms alleviated by warm blanket placed on his abdomen. Patient reports chest tightness (once in a while , secondary to vomiting), decreased appetite secondary to the vomiting (last had a couple of slices of bananas and some saltines yesterday and before then was on 06/02), and light-headedness. Patient also reports that he last had a small BM yesterday but didnt have a BM for 3-4 days before then. PMHx of this digestive condition for years (flares up every 4-5 months) and has controlled it at home for some episodes in the past. Dr. Loomis was his GI doctor but is not anymore and now has Dr. Brown in [place] since December 2017. He was on metropoline which helped him for a couple of years. Patient is now on a combination of Dilaudid, lorazepam, and ondansetron for the pain which hasnt been helping. - History of Current Complaint Chief Complaint: EDAbdPain Time Seen by Provider: 06/06/18 12:13 Stated Complaint: ABD PAIN/CHEST PAIN/SOB Hx Obtained From: Patient Onset/Duration: Started Days Ago - 4 days ago, Still Present Timing: Constant, Lasting Days Severity: Severe Current Severity: Severe Pain Intensity: 8 Associated Signs and Symptoms: Positive: Nausea, Vomiting, Lightheadedness Aggravating Factor(s): Food Alleviating Factor(s): Heat - warm blanket - Additional Pertinent History Primary Care Physician: [id number] - Allergy/Home Medications Allergies/Adverse Reactions: Allergies Allergy/AdvReac Type Severity Reaction Status Date / Time No Known Allergies Allergy Verified 06/06/18 11:17 Home Medications: Home Medications Atenolol TAB* [Tenormin TAB* 50 MG] 50 mg PO QAM 06/06/18 [History Confirmed 08/23] Cyanocobalamin TAB* [Vitamin B12 TAB*] 1,000 mcg PO DAILY 06/06/18 [History Confirmed 06/06/18] Cyclobenzaprine TAB* [Flexeril 10 MG TAB*] 10 mg PO TID PRN 06/06/18 [History Confirmed 06/06/18] Ezetimibe TAB* [Zetia TAB*] 10 mg PO BEDTIME 06/06/18 [History Confirmed ] Losartan TAB* [Cozaar TAB*] 25 mg PO BID 06/06/18 [History Confirmed 06/06/18] Nortriptyline CAP* [Pamelor CAP*] 50 mg PO BEDTIME 06/06/18 [History Confirmed 06/06/18] Omeprazole CAP* [Prilosec CAP* 20 MG] 20 mg PO DAILY 06/06/18 [History Confirmed 06/06/18] Simvastatin TAB(NF) [Zocor(NF)] 20 mg PO BEDTIME 06/06/18 [History Confirmed 08/23] amLODIPine TAB* [Norvasc 5 mg TAB*] 10 mg PO QAM 06/06/18 [History Confirmed 08/23] PMH/Surg Hx/FS Hx/Imm Hx Endocrine/Hematology History: Denies: Hx Diabetes, Hx Thyroid Disease Cardiovascular History: Reports: Hx Hypertension - on medication Denies: Hx Pacemaker/ICD Respiratory History: Reports: Hx Seasonal Allergies Denies: Hx Asthma, Hx Chronic Obstructive Pulmonary Disease (COPD) GI History: Reports: Hx Gastroesophageal Reflux Disease, Hx Ulcer - gerd History: Denies: Hx Dialysis, Hx Renal Disease Musculoskeletal History: Reports: Hx Back Problems - right leg Sensory History: Reports: Hx Contacts or Glasses Denies: Hx Hearing Aid Opthamlomology History: Reports: Hx Contacts or Glasses Neurological History: Reports: Other Neuro Impairments/Disorders - PAIN CLINIC PATIENT Psychiatric History: Denies: Hx Panic Disorder - Surgical History Surgery Procedure, Year, and Place: Lt - achilles tendon - Immunization History Date of Tetanus Vaccine: Up to date Date of Influenza Vaccine: Fall 2011 Infectious Disease History: No Infectious Disease History: Denies: Hx Clostridium Difficile, Hx Hepatitis, Hx Human Immunodeficiency Virus (HIV), Hx of Known/Suspected MRSA, Hx Shingles, Hx Tuberculosis, Hx Known/ Suspected VRE, Hx Known/Suspected VRSA, History Other Infectious Disease, Traveled Outside the [place] in Last 30 Days - Family History Known Family History: Positive: Hypertension, Other - Mother had lung CA. Father had a CVA. Family History: Both parents. - Social History Alcohol Use: Occasionally Alcohol Amount: cocktail nightly Substance Use Type: Reports: None Hx Tobacco Use: Yes Smoking Status (MU): Former Smoker Type: Cigars Review of Systems Negative: Fever, Chills Negative: Erythema Negative: Sore Throat Positive: Other - HTN due to not being able to take his BP meds, chest tightness secondary to vomiting. Negative: Chest Pain Negative: Shortness Of Breath, Cough Positive: Vomiting, Nausea, Other - decreased appetite secondary to the vomiting , decreased BM. Negative: Abdominal Pain Negative: dysuria, hematuria Negative: Myalgia, Edema Negative: Rash Neurological: Other - light-headedness All Other Systems Reviewed And Are Negative: Yes Physical Exam - Summary Physical Exam Summary: Constitutional: Well-developed, Well-nourished, Alert. (-) Distressed Skin: Warm, Dry HENT: Normocephalic; Atraumatic Eyes: Conjunctiva normal Neck: Musculoskeletal ROM normal neck. (-) JVD, (-) Stridor, (-) Tracheal deviation Cardio: Rhythm regular, rate normal, Heart sounds normal; Intact distal pulses; The pedal pulses are 2+ and symmetric. Radial pulses are 2+ and symmetric. (-) Murmur Pulmonary/Chest wall: Effort normal. (-) Respiratory distress, (-) Wheezes, (-) Rales Abd: Soft, (-) epigastric tenderness, (-) Distension, (-) Guarding, (-) Rebound Musculoskeletal: (-) Edema Lymph: (-) Cervical adenopathy Neuro: Alert, Oriented x3 Psych: Mood and affect Normal Triage Information Reviewed: Yes Vital Signs On Initial Exam: Initial Vitals Temp Pulse Resp BP Pulse Ox 98.6 F 89 18 169/114 97 06/06/18 11:14 06/06/18 11:14 06/06/18 11:14 06/06/18 11:14 06/06/18 11:14 Vital Signs Reviewed: Yes Diagnostics - Vital Signs Vital Signs Temp Pulse Resp BP Pulse Ox 06/06/18 12:38 25 06/06/18 11:14 98.6 F 89 18 169/114 97 - Laboratory Lab Results: Lab Results 06/06/18 06/06/18 06/06/18 Range/Units 11:29 11:29 11:29 WBC 10.3 (3.5-10.8) 10^3/ul RBC 4.62 (4.00-5.40) 10^6/ul Hgb 15.2 (14.0-18.0) g/dl Hct 45 (42-52) % MCV 97 H (80-94) fL MCH 33 H (27-31) pg MCHC 34 (31-36) g/dl RDW 13 (10.5-15) % Plt Count 177 (150-450) 10^3/ul MPV 9.8 (7.4-10.4) um3 Neut % (Auto) 73.7 (38-83) % Lymph % (Auto) 12.7 L (25-47) % [place] % (Auto) 12.1 H (0-7) % Eos % (Auto) 0.8 (0-6) % Baso % (Auto) 0.7 (0-2) % Absolute Neuts (auto) 7.5 (1.5-7.7) 10^3/ul Absolute Lymphs (auto) 1.3 (1.0-4.8) 10^3/ul Absolute Monos (auto) 1.2 H (0-0.8) 10^3/ul Absolute Eos (auto) 0.1 (0-0.6) 10^3/ul Absolute Basos (auto) 0.1 (0-0.2) 10^3/ul Absolute Nucleated RBC 0 10^3/ul Nucleated RBC % 0.1 Sodium 138 (135-145) mmol/L Potassium 3.1 L (3.5-5.0) mmol/L Chloride 102 (101-111) mmol/L Carbon Dioxide 22 (22-32) mmol/L Anion Gap 14 H (2-11) mmol/L BUN 29 H (6-24) mg/dL Creatinine 1.41 H (0.67-1.17) mg/dL Est GFR ( Amer) 60.8 (>60) Est GFR (Non-Af Amer) 50.3 (>60) BUN/Creatinine Ratio 20.6 H (8-20) Glucose 124 H (70-100) mg/dL Lactic Acid 1.0 (0.5-2.0) mmol/L Calcium 10.5 H (8.6-10.3) mg/dL Total Bilirubin 0.80 (0.2-1.0) mg/dL AST 62 H (13-39) U/L ALT 51 (7-52) U/L Alkaline Phosphatase 74 (34-104) U/L Troponin I 0.00 (<0.04) ng/mL Total Protein 8.5 (6.4-8.9) g/dL Albumin 4.9 (3.2-5.2) g/dL Globulin 3.6 (2-4) g/dL Albumin/Globulin Ratio 1.4 (1-3) Result Diagrams: 06/06/18 11:29 06/06/18 11:29 Lab Statement: Any lab studies that have been ordered have been reviewed, and results considered in the medical decision making process. - Radiology CXR Radiology Interpretation Completed By: Radiologist - No evidence for acute intrathoracic disease. Dr. Singleton has reviewed this radiology report. - EKG 1122 Cardiac Rate: NL - 72 BPM EKG Rhythm: Sinus Rhythm Summary of EKG Findings: No STEMI Re-Evaluation - Re-Evaluation First Eval Re-Evaluation Time: 16:43 Change: Improved Comment: Patient feels better and is tolerating PO. GIGU Course/Dx - Course Assessment/Plan: This patient is a 67 year old M presenting to ED with a chief complaint of N/V since 4 days ago, which is the longest episode hes had in a while. CXR reveals no evidence for acute intrathoracic disease. EKG done at 1122 reveals NSR at 72 BPM and no STEMI. The patient feels better upon re-eval and will be discharged with dx of cyclical vomiting syndrome. Patient understands and agrees with this plan. - Diagnoses Provider Diagnoses: Cyclical vomiting syndrome Discharge - Sign-Out/Discharge Documenting (check all that apply): Patient Departure - discharge - Discharge Plan Condition: Stable Disposition: HOME Patient Education Materials: Cyclic Vomiting Syndrome (ED) Referrals: Brian Andrade DO [Doctor of Osteopathy] - (2-3 days) Additional Instructions: PLEASE FOLLOW UP WITH DR. ANDRADE IN 2-3 DAYS. RETURN TO THE EMERGENCY DEPARTMENT FOR CHANGING OR WORSENING SYMPTOMS - Billing Disposition and Condition Condition: STABLE Disposition: Home - Attestation Statements Document Initiated by Scribe: Yes Documenting Scribe: Michael Quezada Provider For Whom Scribe is Documenting (Include Credential): Miguelangel Singleton MD Scribe Attestation: I, Micahel Quezada, scribed for Miguelangel Singleton MD on 06/10/18 at 1138. Scribe Documentation Reviewed: Yes Provider Attestation: The documentation as recorded by the scribe, Michael Quezada accurately reflects the service I personally performed and the decisions made by me, Miguelangel Singleton MD
[2018-06-06] MEDS ORDERED: HYDROmorphone INJ* 2 MG/ML CARPUJECT SYRINGE IV SLOW PU ONE (14:13)
[2018-06-06] MEDS ORDERED: HYDROmorphone INJ1* 1 MG/ML SYRINGE ONE (14:41)
[2018-06-06 17:39] VITALS: BP 133/93
== END 2018-06-06 17:40 | disposition home or self-care (01) ==
LOC: ED 11:04
DX: G43.A0 Cyclical vomiting, in migraine, not intractable (principal); I10 Essential (primary) hypertension; K21.9 Gastro-esophageal reflux disease without esophagitis; Z87.891 Personal history of nicotine dependence
CPT/HCPCS: 36415; 71045; 80053; 83605; 84484; 85025; 93005; 96361; 96374; 96375; 99282; J1170; J2060; J2270; J2405

== ENCOUNTER 2018-09-30 10:50 | Emergency (ER) | payer MEDICARE, OTHER ==
[2018-09-30 11:04] VITALS: BP 134/100
== END 2018-09-30 12:27 | disposition left against medical advice (07) ==
LOC: ED 10:50
DX: R10.9 Unspecified abdominal pain (principal); Z53.21 Procedure and treatment not carried out due to patient leaving prior to being seen by health care provider

== ENCOUNTER 2018-11-11 19:12 | Emergency (ER) | payer MEDICARE, OTHER ==
[2018-11-11] MEDS ORDERED: Aspirin 81 mg CHEW TAB* 81 MG TAB.CHEW PO ONE (20:03)
[2018-11-11] MEDS ORDERED: Ondansetron INJ* 2 MG/ML VIAL IV ONE (20:05)
[2018-11-11] MEDS ORDERED: Morphine 4 MG/ML VIAL (1 ml) 4 MG/ML VIAL IV ONE (20:05)
--- NOTE | 2018-11-11 20:06 | ED ---
HPI Chest Pain - HPI Summary HPI Summary: Patient is a 68 y/o male who presents to the ED c/o CP. At 18:00 today he suddenly had CP while sitting down. The pain is rated an 8/10 in severity and is described as pressure and tightness. Patient also c/o nausea, mild SOB, mild abdominal pain, and indigestion. He denies any vomiting. As per , his last cardiac stress test was a few years ago. Patient had knee surgery 2 months ago. PMHx HTN and HLD. He is a former smoker, and has one alcoholic beverage daily. Patient denies any cardiac FHx. - History of Current Complaint Chief Complaint: EDChestPainROMI Time Seen by Provider: 11/11/18 19:59 Hx Obtained From: Patient, Family/[facility] - Onset/Duration: Started Hours Ago - 18:00, Still Present Timing: Constant Current Severity: Severe Pain Intensity: 8 Pain Scale Used: 0-10 Numeric Character: Pressure/Squeezing, Tightness Aggravating Factor(s): Nothing Alleviating Factor(s): Nothing Associated Signs and Symptoms: Positive: Chest Pain, Shortness of Breath, Nausea , Abdominal Pain. Negative: Vomiting Related History: Similar Episode/Dx as: - hx HTN HLD - Additional Pertinent History Primary Care Physician: [id number] - Allergy/Home Medications Allergies/Adverse Reactions: Allergies Allergy/AdvReac Type Severity Reaction Status Date / Time No Known Allergies Allergy Verified 11/11/18 19:28 PMH/Surg Hx/FS Hx/Imm Hx Endocrine/Hematology History: Denies: Hx Diabetes, Hx Thyroid Disease Cardiovascular History: Reports: Hx Hypercholesterolemia, Hx Hypertension - on medication Denies: Hx Myocardial Infarction, Hx Pacemaker/ICD Respiratory History: Reports: Hx Seasonal Allergies Denies: Hx Asthma, Hx Chronic Obstructive Pulmonary Disease (COPD) GI History: Reports: Hx Gastroesophageal Reflux Disease, Hx Ulcer - gerd History: Denies: Hx Dialysis, Hx Renal Disease Musculoskeletal History: Reports: Hx Back Problems - right leg Sensory History: Reports: Hx Contacts or Glasses Denies: Hx Hearing Aid Opthamlomology History: Reports: Hx Contacts or Glasses Neurological History: Reports: Other Neuro Impairments/Disorders - PAIN CLINIC PATIENT Psychiatric History: Denies: Hx Panic Disorder - Surgical History Surgery Procedure, Year, and Place: Lt - achilles tendon - Immunization History Date of Tetanus Vaccine: Up to date Date of Influenza Vaccine: Fall 2011 Infectious Disease History: No Infectious Disease History: Denies: Hx Clostridium Difficile, Hx Hepatitis, Hx Human Immunodeficiency Virus (HIV), Hx of Known/Suspected MRSA, Hx Shingles, Hx Tuberculosis, Hx Known/ Suspected VRE, Hx Known/Suspected VRSA, History Other Infectious Disease, Traveled Outside the [place] in Last 30 Days - Family History Known Family History: Positive: Hypertension, Other - Mother had lung CA. Father had a CVA. Negative: Cardiac Disease - Social History Alcohol Use: Occasionally Alcohol Amount: cocktail nightly Hx Substance Use: No Substance Use Type: Reports: None Hx Tobacco Use: Yes Smoking Status (MU): Former Smoker Type: Cigars Review of Systems Positive: Chest Pain Positive: Shortness Of Breath Positive: Abdominal Pain, Nausea, Other - indigestion. Negative: Vomiting All Other Systems Reviewed And Are Negative: Yes Physical Exam - Summary Physical Exam Summary: VITAL SIGNS: Reviewed. GENERAL: Patient is a well-developed and nourished MALE who is lying uncomfortable secondary to pain in the stretcher. Patient is not in any acute respiratory distress. HEAD AND FACE: No signs of trauma. No ecchymosis, hematomas or skull depressions. No sinus tenderness. EYES: PERRLA, EOMI x 2, No injected conjunctiva, no nystagmus. EARS: Hearing grossly intact. Ear canals and tympanic membranes are within normal limits. MOUTH: Oropharynx within normal limits. NECK: Supple, trachea is midline, no adenopathy, no JVD, no carotid bruit, no c- spine tenderness, neck with full ROM. CHEST: Symmetric, no tenderness at palpation LUNGS: Clear to auscultation bilaterally. No wheezing or crackles. CVS: Regular rate and rhythm, S1 and S2 present, no murmurs or gallops appreciated. ABDOMEN: Soft, non-tender. No signs of distention. No rebound no guarding, and no masses palpated. Bowel sounds are normal. EXTREMITIES: FROM in all major joints, no edema, no cyanosis or clubbing. NEURO: Alert and oriented x 3. No acute neurological deficits. Speech is normal and follows commands. SKIN: Dry and warm Triage Information Reviewed: Yes Vital Signs On Initial Exam: Initial Vitals Temp Pulse Resp BP Pulse Ox 99 F 77 18 165/101 98 11/11/18 19:26 11/11/18 19:26 11/11/18 19:26 11/11/18 19:26 11/11/18 19:26 Vital Signs Reviewed: Yes Diagnostics - Vital Signs Vital Signs Temp Pulse Resp BP Pulse Ox 11/11/18 19:26 99 F 77 18 165/101 98 - Laboratory Result Diagrams: 11/11/18 20:21 11/11/18 20:21 Lab Statement: Any lab studies that have been ordered have been reviewed, and results considered in the medical decision making process. - Radiology CXR Radiology Interpretation Completed By: ED Physician Summary of Radiographic Findings: Cardiomegaly, no acute pathology. Pending official radiology report. - EKG 19:34 Cardiac Rate: NL - 70 bpm EKG Rhythm: Sinus Rhythm ST Segment: Normal Summary of EKG Findings: Q waves in AVF, T wave inversions in V2-V3 20:45 Cardiac Rate: NL - 71 bpm EKG Rhythm: Sinus Rhythm ST Segment: Normal EKG Comparison: No Significant Change - as compared to earlier EKG Summary of EKG Findings: Nl axis Re-Evaluation - Re-Evaluation First Eval Re-Evaluation Time: 21:08 Change: Unchanged Comment: Pt is still having CP. The troponin is 0, however the d-dimer is elevated. Will order a chest CTA. Chest Pain Course/Dx - Course Assessment/Plan: This patient is a 68-year-old male who presents to the emergency department with chief complaint of chest pain. Test results without any significant abnormality, except for d-dimer is 600, lactic acid 3, magnesium 1.5,. In the ED course the patient was given aspirin, nitroglycerin, morphine and Zofran. EKG shows a normal sinus rhythm without any ST elevations. Chest x-ray impression: No acute pathology. The patient continues to have more pain. Therefore the patient had another EKG which shows no ST elevations. The patient was given fentanyl for the pain and Compazine for the nausea and vomiting. Because the patient has history of recent surgery I order has CTA of the chest to rule out PE. At this point the patient is awaiting for the results. The patient will be signed out to Dr. Niño at shift change. The patient is hemolyticus stable alert and oriented 3. - Diagnoses Provider Diagnoses: Chest pain Discharge - Sign-Out/Discharge Documenting (check all that apply): Sign-Out Patient Signing out patient TO: Db Niño Patient Received Moderate/Deep Sedation with Procedure: No - Discharge Plan Condition: Stable Disposition: HOME Referrals: Jessica Valenzuela MD [Primary Care Provider] - Charles Aleman MD [Medical Doctor] - Additional Instructions: Please call Dr. Aleman in the morning. Return to the ED with any new or worsening symptoms. - Attestation Statements Document Initiated by Scribe: Yes Documenting Scribe: Sury Breaux Provider For Whom Joannibe is Documenting (Include Credential): Cosme Sheth MD Scribe Attestation: ISury, scribed for Cosme Sheth MD on 11/13/18 at 2142. Scribe Documentation Reviewed: Yes Provider Attestation: The documentation as recorded by the scribeSury accurately reflects the service I personally performed and the decisions made by me, Cosme Sheth MD Status of Scribe Document: Viewed
[2018-11-11] MEDS ORDERED: Nitroglycerin TAB 0.4 MG* 0.4 MG TAB ONE (20:28)
[2018-11-11 20:30] LABS: ABS Basophils 0.1 10^3/ul (0-0.2); ABS Eosinophils 0.2 10^3/ul (0-0.6); ABS Lymphocytes 1.6 10^3/ul (1.0-4.8); ABS Monocytes 0.9 10^3/ul (0-0.8); ABS Nucleated RBC 0 10^3/ul; Hematocrit 42 % (36-46); Hemoglobin 14.3 g/dL (14.0-18.0); Lymphocyte % 23.9 %; Mean Corpuscular HGB Conc 34 g/dL (31-36); Mean Corpuscular Hemoglobin 32 pg (27-31); Mean Corpuscular Volume 94 fL (80-94); Mean Platelet Volume 8.5 fL (7.4-10.4); Nucleated Red Blood Cells % 0; Platelet Count 183 10^3/uL (150-450); Red Blood Count 4.51 10^6 /uL (4.18-5.48); Red Cell Distribution Width 15 % (10.5-15); White Blood Count 6.8 10^3/uL (3.5-10.8)
[2018-11-11] MEDS ORDERED: Nitroglycerin TAB 0.4 MG* 0.4 MG TAB SL ONE (20:30)
[2018-11-11 20:41] LABS: Activated Partial Thrombo Time 31.1 seconds (26.0-36.3); INR 0.86 (0.77-1.02)
[2018-11-11 20:48] LABS: Albumin 4.6 g/dL (3.2-5.2); Albumin/Globulin Ratio 1.5 (1-3); BUN/Creatinine Ratio 22.2 (8-20); Calcium 10.2 mg/dL (8.6-10.3); EGFR African American 101.8 (>60); EGFR Non-African American 84.2 (>60); Globulin 3.1 g/dL (2-4); Magnesium 1.5 mg/dL (1.9-2.7); Potassium 3.9 mmol/L (3.5-5.0); Total Bilirubin 0.6 mg/dL (0.2-1.0); Total Protein 7.7 g/dL (6.4-8.9)
[2018-11-11] MEDS ORDERED: Magnesium Sulfate 1 GM IV* 1 GM/100 ML BAG IV ONE (20:50)
[2018-11-11 20:52] LABS: CKMB ng/mL 2.3 ng/mL (0.6-6.3)
[2018-11-11] MEDS ORDERED: Iohexol 350* (CONTRAST) 500 ML MDV IV ONE (21:01)
[2018-11-11 21:09] LABS: TSH (Thyroid Stimulating Horm) 1.3 mcIU/mL (0.34-5.60)
[2018-11-11] MEDS ORDERED: fentaNYL* 50 MCG/ML 2 ML VIAL (100 MCG VIAL) IV SLOW PU ONE (21:10)
[2018-11-11] MEDS ORDERED: PROCHLORPERAZINE INJ 5 MG/ML 2 ML VIAL IV PRN (21:10)
[2018-11-11] MEDS ORDERED: PROCHLORPERAZINE INJ 5 MG/ML 2 ML VIAL ONE (21:15)
[2018-11-11] MEDS ORDERED: NS 0.9% 1000 ML** 1,000 ML IV ONE (21:34)
--- NOTE | 2018-11-11 22:18 | ED ---
Progress - Progress Note Progress Note: The pt is a signout from Dr. Sheth to Dr. Niño at 2200 pending chest/thorax CTA results. - Results/Orders Results/Orders: Chest/Thorax CTA shows: 1. No visible acute pulmonary embolism. 2. No aortic dissection. ED physician has reviewed this report. Re-Evaluation - Re-Evaluation First Eval Re-Evaluation Time: 00:15 Change: Improved Comment: The pt reports feeling better and that he is presently pain free. I reviewed the lab results with him, and he reports hx of GERD which could be the reason for his pain. I asked him if he would be admitted to the hospital, and he insisted on returning home. I then asked the pt to follow up with his attorney law clerk, Dr. Aleman, and he agreed to call in the morning. He also reports he has had a stress test two years ago that was negative. He will be d/c ed with a dx of chest pain. Course/Dx - Course Course Of Treatment: The pt is a signout from Dr. Sheth to Dr. Niño at 2200 pending chest/thorax CTA results. Chest/thorax CTA shows: 1. No visible acute pulmonary embolism. 2. No aortic dissection. Two troponins have come back at 0.00. The pt's lactic acid has decreased to 0.9. As of 14, the pt reports feeling better and that he is presently pain free. I reviewed the lab results with him, and he reports hx of GERD which could be the reason for his pain. I asked him if he would be admitted to the hospital, and he insisted on returning home. I then asked the pt to follow up with his attorney law clerk, Dr. Aleman, and he agreed to call in the morning. He also reports he has had a stress test two years ago that was negative. He will be d/yee with a dx of chest pain. - Diagnoses Provider Diagnoses: Chest pain Discharge - Sign-Out/Discharge Documenting (check all that apply): Patient Departure, Receiving Sign-Out Receiving patient FROM: Cosme Howards Patient Received Moderate/Deep Sedation with Procedure: No - Discharge Plan Condition: Stable Disposition: HOME Referrals: Jessica Valenzuela MD [Primary Care Provider] - Charles Aleman MD [Medical Doctor] - Additional Instructions: Please call Dr. Aleman in the morning. Return to the ED with any new or worsening symptoms. - Attestation Statements Document Initiated by Scribe: Yes Documenting Scribe: Lizette Doss Provider For Whom Kortney is Documenting (Include Credential): Db Niño MD. Scribe Attestation: Lizette Wood, scribed for Db Niño MD. on 11/12/18 at 0020. Status of Scribe Document: Ready
[2018-11-12 00:19] VITALS: BP 113/74
== END 2018-11-12 00:31 | disposition home or self-care (01) ==
LOC: ED 19:12
DX: R07.9 Chest pain, unspecified (principal); I10 Essential (primary) hypertension; E78.00 Pure hypercholesterolemia, unspecified; Z79.899 Other long term (current) drug therapy; Z87.891 Personal history of nicotine dependence; R94.31 Abnormal electrocardiogram [ECG] [EKG]
CPT/HCPCS: 36415; 71045; 71275; 80053; 82550; 82553; 83605; 83735; 83880; 84443; 84484; 85025; 85379; 85610; 85730; 93005; 96361; 96365; 96375; 99284; A9270-GY; J0780; J2270; J2405; J3010; J3475; Q9967

== ENCOUNTER 2024-01-19 03:38 | Observation (INO) ==
[2024-01-19] MEDS: fentaNYL 100 mcg/2 ml 50 MCG/ML VIAL IV SLOW PU ONE (04:59)
[2024-01-19 05:07] LABS: ABS Basophils 0.1 10^3/uL (0.0-0.1); ABS Eosinophils 0.1 10^3/uL (0.0-0.5); ABS Lymphocytes 1.4 10^3/uL (1.0-4.8); ABS Monocytes 0.8 10^3/uL (0.0-1.1); ABS Neutrophils 7.3 10^3/uL (1.5-7.6); Eosinophil % 0.9 %; Hematocrit 39.2 % (38-53); Hemoglobin 13.4 g/dL (13.2-16.3); Lymphocyte % 14.4 %; Mean Corpuscular Hemoglobin 33.4 pg (27-33); Mean Corpuscular Hgb Conc 34.1 g/dL (31-36); Mean Platelet Volume 9.3 fL (7.5-11.2); Platelet Count 182 10^3/uL (150-450); White Blood Count 9.6 10^3/uL (3.6-10.2)
[2024-01-19 05:35] LABS: Albumin 4.2 g/dL (3.2-5.2); Albumin/Globulin Ratio 1.8 (1-3); Calcium 9.5 mg/dL (8.6-10.3); Creatinine, Serum 1.55 mg/dL (0.67-1.17); Globulin 2.3 g/dL (2-4); Potassium 4.7 mmol/L (3.5-5.0); Total Bilirubin 0.3 mg/dL (0.2-1.0); Total Protein 6.5 g/dL (6.4-8.9); eGFR CKD-EPI 47.3 (>60)
[2024-01-19] MEDS ORDERED: Iodixanol (CONTRAST) 320 MG/ML 100 ML SDV IV ONE (05:52)
[2024-01-19] MEDS: Morphine 4 MG/ML VIAL (1 ml) IV ONE (06:02)
[2024-01-19] MEDS: Lactated Ringers 1000 ml BAG 1,000 ML IV ONE (06:03)
[2024-01-19] MEDS: Ondansetron 4 mg VIAL 2 MG/ML 2 ml VIAL IV ONE (06:03)
[2024-01-19] MEDS: Iodixanol (CONTRAST) 320 MG/ML 100 ML SDV IV ONE (06:49)
[2024-01-19] MEDS: HYDROmorphone 1 MG/1 ML SYRINGE IV ONE (08:05)
[2024-01-19 08:06] LABS: ABS Lymphocytes 1.1 10^3/uL (1.0-4.8); ABS Monocytes 0.6 10^3/uL (0.0-1.1); ABS Neutrophils 8.7 10^3/uL (1.5-7.6); ABS Nucleated RBC 0.01 10^3/ul; Eosinophil % 0.1 %; Hematocrit 39.5 % (38-53); Hemoglobin 13.6 g/dL (13.2-16.3); Lymphocyte % 10.6 %; Mean Corpuscular Hemoglobin 33.7 pg (27-33); Mean Corpuscular Hgb Conc 34.5 g/dL (31-36); Mean Corpuscular Volume 97.8 fL (80-97); Mean Platelet Volume 8.9 fL (7.5-11.2); Nucleated Red Blood Cells % 0.1 %/100WBC (0.0-0.8); Platelet Count 194 10^3/uL (150-450); Red Blood Count 4.04 10^6/uL (4.06-5.63); Red Cell Distribution Width 13.7 % (12-17); White Blood Count 10.5 10^3/uL (3.6-10.2)
[2024-01-19 08:23] LABS: Albumin 4.5 g/dL (3.2-5.2); Albumin/Globulin Ratio 1.7 (1-3); CRP High Sensitivity 1.46 mg/L (<2.00); Creatinine, Serum 1.48 mg/dL (0.67-1.17); Globulin 2.7 g/dL (2-4); Potassium 4.9 mmol/L (3.5-5.0); Total Bilirubin 0.4 mg/dL (0.2-1.0); Total Protein 7.2 g/dL (6.4-8.9)
[2024-01-19] MEDS: NS 0.9% 1000 ml BAG 1,000 ML IV ONE ×2 (09:14→16:16)
[2024-01-19] MEDS: HYDROmorphone 1 MG/1 ML SYRINGE IV SLOW PU ONE (12:01)
[2024-01-19 12:59] LABS: Urine Appearance Clear; Urine Bilirubin Negative (Negative); Urine Blood Negative (Negative); Urine Color Light-Yellow; Urine Glucose Negative (Negative); Urine Ketones Negative (Negative); Urine Nitrite Negative (Negative); Urine Protein 1+ (>=30 mg/dL) (Negative); Urine Specific Gravity 1.031 (1.002-1.030); Urine Urobilinogen Negative (Negative); Urine pH 5.5 (5.0-8.0)
[2024-01-19 13:07] LABS: Urine Bacteria Absent /HPF (Absent); Urine Red Blood Cell 1+(3-5/hpf) /HPF (0-Trace); Urine Squamous Epithelial Cell Present /HPF (Absent); Urine White Blood Cell Trace(0-5/hpf) /HPF (0-Trace)
[2024-01-19] MEDS: HYDROmorphone 0.5 MG/0.5 ML SYRINGE IV SLOW PU PRN (14:29)
[2024-01-19] MEDS: Ondansetron ODT 4 mg TAB 4 MG TAB PO PRN (14:37)
[2024-01-19] MEDS: Enoxaparin 40 MG/0.4 ML SYR SUBCUT SCH (14:57)
[2024-01-19] MEDS: DEXLANSOPRAZOLE 60 MG PO SCH (18:08)
[2024-01-19] MEDS: Lactated Ringers 1000 ml BAG 500 ML IV ONE (20:05)
[2024-01-19] MEDS: HYDROcodone/ACETAMIN 5/325 mg TAB PO PRN (20:09)
[2024-01-20 06:18] LABS: Hematocrit 34.5 % (38-53); Hemoglobin 11.8 g/dL (13.2-16.3); Mean Corpuscular Hemoglobin 33.3 pg (27-33); Mean Corpuscular Hgb Conc 34.1 g/dL (31-36); Mean Corpuscular Volume 97.5 fL (80-97); Mean Platelet Volume 9.3 fL (7.5-11.2); Platelet Count 145 10^3/uL (150-450); Red Blood Count 3.54 10^6/uL (4.06-5.63); White Blood Count 7.4 10^3/uL (3.6-10.2)
[2024-01-20 06:35] LABS: Calcium 9.4 mg/dL (8.6-10.3); Creatinine, Serum 1.19 mg/dL (0.67-1.17); Magnesium 1.4 mg/dL (1.9-2.7); Potassium 3.4 mmol/L (3.5-5.0); eGFR CKD-EPI 64.9 (>60)
[2024-01-20 08:10] LABS: PSA Screen Ultra Sensitive 4.34 ng/mL (0-4.000)
[2024-01-20] MEDS: Magnesium Sulfate 2 gm BAG 2 GM/50 ML BAG IVPB ONE (09:12)
[2024-01-20] MEDS: Polyethylene Glycol 3350 17 GM PACKET PO SCH (09:12)
[2024-01-20] MEDS: Potassium Chlor 20 meq TAB.ER PO ONE (10:19)
[2024-01-20] MEDS: Lidocaine PATCH 5% PATCH TRANSDERM SCH (16:05)
[2024-01-20] MEDS: HYDROmorphone 1 MG/1 ML SYRINGE IV SLOW PU PRN (16:06)
[2024-01-21 06:14] LABS: Hematocrit 37.7 % (38-53); Hemoglobin 12.7 g/dL (13.2-16.3); Mean Corpuscular Hemoglobin 32.4 pg (27-33); Mean Corpuscular Hgb Conc 33.6 g/dL (31-36); Mean Corpuscular Volume 96.7 fL (80-97); Mean Platelet Volume 9.6 fL (7.5-11.2); Platelet Count 170 10^3/uL (150-450); White Blood Count 10.2 10^3/uL (3.6-10.2)
[2024-01-21 06:31] LABS: Calcium 10.4 mg/dL (8.6-10.3); Creatinine, Serum 1.19 mg/dL (0.67-1.17); Magnesium 1.7 mg/dL (1.9-2.7); Potassium 3.6 mmol/L (3.5-5.0); eGFR CKD-EPI 64.9 (>60)
[2024-01-21 14:15] VITALS: BP 132/93
== END 2024-01-21 15:15 | disposition home or self-care (01) ==
LOC: ED 03:38 → EDHOLD 03:38 → SSU 16:17
PROVIDERS: ADMIT Student in an Organized Health Care Education/Training Program; ATTEND Student in an Organized Health Care Education/Training Program

== ENCOUNTER 2024-02-27 12:56 | Observation (INO) ==
[2024-02-27 13:31] LABS: ABS Eosinophils 0.1 10^3/uL (0.0-0.5); ABS Lymphocytes 1.1 10^3/uL (1.0-4.8); ABS Monocytes 1.1 10^3/uL (0.0-1.1); ABS Neutrophils 6.8 10^3/uL (1.5-7.6); Eosinophil % 0.9 %; Hematocrit 41.7 % (38-53); Hemoglobin 14.2 g/dL (13.2-16.3); Lymphocyte % 12.2 %; Mean Corpuscular Hemoglobin 33.7 pg (27-33); Mean Corpuscular Hgb Conc 34.1 g/dL (31-36); Mean Corpuscular Volume 98.7 fL (80-97); Mean Platelet Volume 8.1 fL (7.5-11.2); Platelet Count 160 10^3/uL (150-450); Red Blood Count 4.23 10^6/uL (4.06-5.63); Red Cell Distribution Width 13.8 % (12-17); White Blood Count 9.2 10^3/uL (3.6-10.2)
[2024-02-27 13:37] LABS: INR 0.94 (0.83-1.13)
[2024-02-27 14:23] LABS: Albumin 4.8 g/dL (3.2-5.2); Albumin/Globulin Ratio 1.7 (1-3); Calcium 10.8 mg/dL (8.6-10.3); Creatinine, Serum 1.29 mg/dL (0.67-1.17); Globulin 2.9 g/dL (2-4); Potassium 4.2 mmol/L (3.5-5.0); Total Bilirubin 0.9 mg/dL (0.2-1.0); Total Protein 7.7 g/dL (6.4-8.9); eGFR CKD-EPI 58.9 (>60)
[2024-02-27 14:47] LABS: Magnesium 1.4 mg/dL (1.9-2.7)
[2024-02-27 15:04] LABS: TSH Ultra Thyroid Stim Horm 2.27 mcIU/mL (0.34-5.60)
[2024-02-27 15:24] LABS: High Sensitivity Troponin 1 Hr 11 pg/mL (<20)
[2024-02-27] MEDS: Iohexol 350 (CONTRAST) 500 ML MDV IV ONE (19:41)
[2024-02-27] MEDS: Magnesium Sulfate 2 gm BAG 2 GM/50 ML BAG IVPB ONE (22:30)
[2024-02-28] MEDS: Orphenadrine Citrate INJ 30 mg/ml 2 ml VIAL (60 mg) IV ONE (11:02)
[2024-02-28 13:51] VITALS: BP 151/90
[2024-02-28] MEDS: Ondansetron 4 mg VIAL 2 MG/ML 2 ml VIAL IV PRN (13:59)
[2024-02-28] MEDS ORDERED: Enoxaparin 40 MG/0.4 ML SYR SUBCUT SCH (18:00)
== END 2024-02-28 17:05 | disposition home or self-care (01) ==
LOC: ED 12:56 → EDHOLD 12:56 → SUATTDRO 23:42 → EDHOLD 02-28 02:08 → MEDTELE 02-28 02:30
PROVIDERS: ADMIT Internal Medicine; ATTEND Student in an Organized Health Care Education/Training Program